=== PATIENT | male | born 1970 | race Caucasian/White ===

== ENCOUNTER 2018-08-04 23:36 | Inpatient (IN) ==
--- NOTE | 2018-08-05 02:42 | HISTORY AND PHYSICAL ---
PRIMARY CARE PHYSICIAN: Dr. Banuelos. CHIEF COMPLAINT: Abdominal pain x1 month. HISTORY OF PRESENTING ILLNESS: A 48-year-old male with a history of alcoholic liver disease, who had initially presented to [facility] with complaint of worsening abdominal pain that has been going on for the past month. Apparently, patient does have a history of alcoholic liver disease. The patient has admitted to having yellowish discoloration of his skin over the past several days. He was evaluated in the emergency department and, as per ER physician, it was suspected possibly he had peritonitis and requested patient be transferred to [facility] for further evaluation by Gastroenterology. At the time of my examination, patient had denied any headache, fever, chills, chest pain, shortness of breath, but complained of abdominal pain. PAST MEDICAL HISTORY: Includes alcoholic liver disease. PAST SURGICAL HISTORY: None. ALLERGIES: Penicillin, sulfa. CURRENT MEDICATIONS: None. SOCIAL HISTORY: [id number] history of smoking. Admits to drinking vodka and beer daily. Denies any illicit drug use. FAMILY HISTORY: No history of coronary disease. REVIEW OF SYSTEMS: Fourteen-point review of systems is as in HPI. Other systems negative. PHYSICAL EXAMINATION: GENERAL: Cooperative, friendly male. He is resting comfortably now. VITAL SIGNS: Temperature 97.7 degrees, pulse 87, respiration 19, blood pressure 120/78. HEENT: Atraumatic, normocephalic. Extraocular movements intact. PERRLA.. scleral icterus NECK: No masses. CHEST: Bibasilar rales. CARDIOVASCULAR: Regular rate and rhythm. ABDOMEN: Distended and ascitic. Ballottement noted. EXTREMITIES: No edema. NEUROLOGIC: He is awake, alert, oriented x3. GENITOURINARY: No bladder distention. SKIN: Warm, Jaundiced LABORATORIES AND STUDIES: WBCs 14.7, hemoglobin 11.8, hematocrit 33.9, platelets 283,000. Sodium 128, potassium 3.5, chloride 89, CO2 of 25, BUN is 16, creatinine 0.9. Glucose 132, alkaline phosphatase 289, bilirubin 5.8, AST 171, ALT 28, ammonia level 26. PT/INR 15.9 and 1.57. ASSESSMENT: A 48-year-old male with a history of alcoholic liver disease, who initially had presented to [facility] with complaint of worsening abdominal pain. The patient was evaluated there and, as per ER physician, it was suspected he had peritonitis, subsequently he was transferred to [facility] for further evaluation management. 1. Ascites. 2. Alcohol liver disease. 3. Suspected spontaneous bacterial peritonitis. PLAN: 1. We will admit patient to medical floor. 2. Will keep patient NPO. 3. Will schedule an ultrasound-guided paracentesis in the morning. 4. Consult Gastroenterology. 5. After paracentesis done we will start patient on empiric antibiotics. 6. We will put patient on DVT prophylaxis with SCDs. 7. We will continue to follow and reassess, make further recommendations based on patient's clinical course. cc: Israel Wu MD MTDD
[2018-08-05] MEDS: MORPHINE IV PRN ×6 (03:13→21:04)
[2018-08-05] MEDS: ZOFRAN IV PRN ×2 (03:13→10:22)
[2018-08-05 08:12] LABS: BASO# 0.02 X1000 (0.0-0.2); BASO% 0.2 % (0.0-0.8); EOS% 1.1 % (0.0-10.0); HEMATOCRIT 32.8 % (42.0-52.0); HEMOGLOBIN 11.2 g/dL (14.0-18.0); IMM GRAN# 0.03 X1000 (0.0-0.04); IMM GRAN% 0.3 % (0.0-0.5); LYMPH# 1.22 X1000 (1.2-3.4); LYMPH% 13.3 % (20.5-51.1); MCH 35.6 PG (27-31); MCHC 34.1 g/dL (33-37); MCV 104.1 FL (81-99); MONO# 1.12 X1000 (0.11-0.59); MONO% 12.2 % (1.7-9.3); MPV 9.8 FL (7.4-10.4); NEUT% 72.9 % (42.2-75.2); PLT 213 X1000 (130-400); RBC 3.15 XMIL (4.7-6.1); RDW 14.9 % (11.5-14.5); WBC 9.19 X1000 (4.8-10.8)
[2018-08-05 08:20] LABS: INR 1.56; PROTIME 19.8 Seconds (11.0-16.0)
[2018-08-05 08:21] LABS: PTT 39.1 Seconds (22.3-41.8)
[2018-08-05 08:39] LABS: AGAP 12; ALB/GLOB RATIO 0.8; ALBUMIN 2.6 g/dL (3.5-5.0); ALKALINE PHOSPHATASE 262 U/L (32-122); BUN 19 mg/dL (8-22); CALCIUM 7.8 mg/dL (8.8-10.2); CHLORIDE 92 mmol/L (98-107); COSMO 268; CREATININE 0.9 mg/dL (0.7-1.2); ESTIMATED GFR > 60; GLUCOSE 92 mg/dL (70-104); GOT 146 U/L (10-34); GPT 25 U/L (10-44); POTASSIUM 3.7 mmol/L (3.5-5.1); SODIUM 133 mmol/L (136-145); TCO2 29 mmol/L (25-35); TOTAL BILIRUBIN 5.07 mg/dL (0.20-1.00); TOTAL PROTEIN 5.8 g/dL (6.3-8.3)
[2018-08-05] MEDS ORDERED: SODIUM CHLORIDE 0.9% INJ PRN (10:23)
--- NOTE | 2018-08-05 11:24 | PROGRESS NOTE ---
DATE: 08/05/2018 SUBJECTIVE: Mr. Wei Davis is a 48-year-old gentleman with a history of severe cirrhosis secondary to chronic alcohol abuse. He was transferred from [facility] to [facility] for evaluation of worsening abdominal pain. Apparently over the past several days, he had been having increasing abdominal pain, abdominal distention, nausea/vomiting, low-grade fever, and chills. He continues to drink heavily on a daily basis. OBJECTIVE: Vital Signs: Temperature 98.3 degrees, pulse 97, respirations 20, BP 111/75. Cardiovascular: Regular rate and rhythm. Lungs: Clear. Abdomen: Distended. Hypoactive bowel sounds. No rebound or guarding. ASSESSMENT AND PLAN: 1. Abdominal pain. I suspect that he has spontaneous bacterial peritonitis, given the large amount of ascites with his history of alcohol-induced cirrhosis. We will continue to hold him n.p.o., and we will began Cipro 400 mg IV q.12 h. We will consult Dr. Loja for an ultrasound-guided paracentesis. 2. Alcohol abuse. I will begin thiamin 100 mg IV daily and Librium 10 mg q.6 h. for DT prophylaxis. cc: MD Armond Crane MD
[2018-08-05] MEDS: LIBRIUM PO SCH ×3 (11:51→21:04)
[2018-08-05] MEDS: THIAMINE 100 MG in NS 50 ML IV SCH (11:51)
[2018-08-05] MEDS: CIPRO 400 MG/D5W 400 MG/200 ML IVPB IV SCH ×2 (12:31→22:32)
--- NOTE | 2018-08-05 13:31 | GASTROENTEROLOGY CONSULTATION ---
DATE: 08/05/2018 REASON FOR CONSULTATION: Ascites, alcoholic liver disease. HISTORY OF PRESENT ILLNESS: This is a 48-year-old white male who reports history of alcohol abuse. He usually drinks 1 pint of vodka and multiple beers daily. He reports onset of symptoms over the last several months. He has followed with Dr. Jef Banuelos with abdominal pain, abdominal swelling. The patient has had worsening swelling over the last several weeks. He states he has not had any alcohol over the last 2 to 3 weeks due to his symptoms. He has reported yellowing of his skin and eyes over the last several days. He came in to the emergency room due to increased abdominal distention, some fever, chills, shortness of breath. PAST MEDICAL HISTORY: Lower back pain (chronic), recent diagnosis of liver disease, alcohol abuse, tobacco abuse. PAST SURGICAL HISTORY: None reported. ALLERGIES: Penicillin and sulfonamides, unknown reaction. HOME MEDICATIONS: None listed. SOCIAL HISTORY: Positive for alcohol abuse, usually drinking 1 pint of vodka and multiple beers daily. Positive for tobacco use, 1 to 1-1/2 packs daily. 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 FAMILY HISTORY: No reported liver disease in the family. REVIEW OF SYSTEMS: Per history of present illness. PHYSICAL EXAMINATION: Vital Signs: Temperature 97.5 degrees, pulse 97, respirations 20, blood pressure 111/73. General: The patient is awake and alert, in no acute distress. He does complain of abdominal pain. HEENT: Scleral icterus noted. Skin jaundiced. Respiratory: Lung sounds with bilateral rales. Cardiovascular: Regular rate and rhythm. Abdomen: Distended, firm. Extremities: Bilateral lower extremity edema noted. Neurological: Cranial nerves II through XII grossly intact. The patient is awake, alert, and oriented to person, place, and time. IMAGING: No x-rays done. ASSESSMENT: 1. Ascites. 2. Abdominal pain. 3. Alcoholic liver disease. 4. Possible spontaneous bacterial peritonitis. PLAN: Continue symptomatic treatment and supportive care. We will plan for a paracentesis when able. Labs have been ordered for paracentesis. Per Radiology, they will not be able to do the paracentesis today, and will plan to do it on Monday. Will allow full liquid diet today, and n.p.o. after midnight in preparation for paracentesis. Further plans will be made according to findings. I have discussed this case with Dr. Loja. Thank you for this consultation. Dictated by BEVERLY Bro for Trever Loja MD cc: BEVERLY Ugarte MD
[2018-08-05] MEDS: PHENERGAN IV PRN ×2 (14:21→18:23)
[2018-08-06] MEDS: LIBRIUM PO SCH ×3 (03:30→21:01)
[2018-08-06] MEDS: MORPHINE IV PRN (04:10)
[2018-08-06 07:14] LABS: INR 1.56; PROTIME 19.8 Seconds (11.0-16.0)
[2018-08-06 07:15] LABS: BASO# 0.03 X1000 (0.0-0.2); BASO% 0.2 % (0.0-0.8); EOS# 0.11 X1000 (0.0-0.7); EOS% 0.9 % (0.0-10.0); HEMATOCRIT 34.6 % (42.0-52.0); HEMOGLOBIN 11.9 g/dL (14.0-18.0); IMM GRAN# 0.04 X1000 (0.0-0.04); IMM GRAN% 0.3 % (0.0-0.5); LYMPH# 1.56 X1000 (1.2-3.4); LYMPH% 12.8 % (20.5-51.1); MCH 35.5 PG (27-31); MCHC 34.4 g/dL (33-37); MCV 103.3 FL (81-99); MONO# 1.48 X1000 (0.11-0.59); MONO% 12.1 % (1.7-9.3); NEUT# 8.98 X1000 (1.4-6.5); NEUT% 73.7 % (42.2-75.2); PLT 289 X1000 (130-400); RBC 3.35 XMIL (4.7-6.1); RDW 14.6 % (11.5-14.5)
[2018-08-06 07:26] LABS: ESTIMATED GFR > 60
[2018-08-06 07:28] LABS: AGAP 13; ALB/GLOB RATIO 0.7; ALBUMIN 2.7 g/dL (3.5-5.0); ALKALINE PHOSPHATASE 266 U/L (32-122); BUN 21 mg/dL (8-22); CALCIUM 7.9 mg/dL (8.8-10.2); CHLORIDE 85 mmol/L (98-107); COSMO 254; CREATININE 0.9 mg/dL (0.7-1.2); GLUCOSE 98 mg/dL (70-104); GOT 204 U/L (10-34); GPT 28 U/L (10-44); SODIUM 125 mmol/L (136-145); TCO2 27 mmol/L (25-35); TOTAL BILIRUBIN 5.34 mg/dL (0.20-1.00); TOTAL PROTEIN 6.6 g/dL (6.3-8.3)
--- NOTE | 2018-08-06 07:33 | Diag Imaging Result Doc PS360 ---
CHEST-PORTABLE - 08/06/2018 INDICATION: dyspnea COMPARISON: None FINDINGS: Lung volumes are severely low. No infiltrates or effusions. Heart size is normal. IMPRESSION: Severely low lung volumes. Electronically signed by Alek Hoyt 08/06/2018 7:31 AM
--- NOTE | 2018-08-06 09:12 | Diag Imaging Result Doc PS360 ---
US ABD PARACENTESIS W S/I - 08/06/2018 INDICATION: ascites COMPARISON: None FINDINGS: The risks and benefits of the procedure were discussed with the patient. All questions were answered. Written and verbal consent was obtained. Ultrasound scanning demonstrated ascites. Overlying skin was prepped and draped in sterile fashion. Anesthesia was achieved with injection of 10 cc 1% lidocaine. The paracentesis catheter was advanced until the return of ascites fluid. 5.5 L was aspirated. The catheter was withdrawn intact. The patient reported no symptoms from the procedure. IMPRESSION: Successful and uncomplicated ultrasound-guided paracentesis. Electronically signed by Alek Hoyt 08/06/2018 9:09 AM
--- NOTE | 2018-08-06 09:16 | Diag Imaging Result Doc PS360 ---
US ABDOMEN-COMPLETE - 08/06/2018 INDICATION: Abdominal distention, likely cirrhosis COMPARISON: None FINDINGS: The liver is diffusely increased in echotexture compatible with fatty change. The spleen is enlarged. The spleen measures 13.5 x 4.6 cm. There is a tiny polyp in the gallbladder measuring 6 mm. There is nonspecific gallbladder wall thickening from the edema. There is mild to moderate ascites. Common bile duct measures 5 mm. The main portal vein demonstrates pulsatile or absent flow. The hepatic artery is the dominant flow signal here. Aorta and IVC are normal. Both kidneys are normal. The pancreas is obscured. IMPRESSION: 1. Severe fatty change of the liver compatible with hepatocellular disease. 2. Absent flow of the main portal vein. 3. Splenomegaly. 4. Ascites. 5. Tiny polyp in the gallbladder. Nonspecific gallbladder wall thickening of no significance. Electronically signed by Alek Hoyt 08/06/2018 9:14 AM
[2018-08-06] MEDS: FOLIC ACID PO SCH (09:49)
[2018-08-06] MEDS ORDERED: ALBUMIN 25% IV ONE (10:27)
[2018-08-06 11:05] LABS: BODY FLUID SOURCE ASCETIC FLUID; WBC BF 34 /cumm
--- NOTE | 2018-08-06 11:11 | PROGRESS NOTE ---
DATE: 08/06/2018 SUBJECTIVE: This patient just had an abdominal paracentesis, 5.5 L of fluid has been removed and I already asked for albumin IV. The fluid has been sent to the laboratory for analysis, pending at this time. I talked to Dr. Loja by phone. We will place this patient on spironolactone and furosemide starting today. I already talked to the family about the treatment, and I strongly recommended to this patient to stop drinking completely. We did an ultrasound of the abdomen that showed severe fatty change of the liver compatible with hepatocellular disease, absent flow of the main portal vein, splenomegaly, cecitis, tiny polyp in the gallbladder, nonspecific gallbladder wall thickening of no significance. The patient will be re-evaluated today by Gastroenterology Department. Probably, I will discharge this patient tomorrow. OBJECTIVE: Vital Signs: Temperature 98.8 degrees, pulse 107, respiratory rate 16, blood pressure 110/68, oxygen saturation 100% on room air. HEENT: Head. Normocephalic. No trauma. PERRLA. Icteric sclerae. Skin jaundiced. Neck: Supple. No JVD. Central trachea. Chest: Clear to auscultation. Some crepitus at the bases. Abdomen: Soft. Distended. He does have some abdominal wall edema and fluid. Firm liver and splenomegaly. Positive bowel sounds. Extremities: 3+ lower extremity edema all the way up to the thigh. Neurological: The patient is alert and oriented x3. No focal deficits. LABORATORY: WBC 12.2, hemoglobin 11.9, hematocrit 34.6, platelets 289,000. Sodium 125, potassium 4, chloride 85, bicarbonate 27, BUN 21, creatinine 0.9, glucose 98, calcium 7.9. AST 204, ALT 28, alkaline phosphatase 266, bilirubin 5.3. ASSESSMENT AND PLAN: 1. Alcohol liver disease, ascites, status post paracentesis. suspected spontaneous bacterial peritonitis. As per the patient, he has been having some chills. We started this patient already on ciprofloxacin IV. Since we removed 5.5 L of fluid, we will add albumin x1. The case has been discussed with Gastroenterology Department. We will start this patient on furosemide and spironolactone as well. Since the blood pressure has been borderline low, I will stop the morphine. I will put him on Tramadol as needed. The patient will be evaluated by Gastroenterology Department today and hopefully tomorrow, we will be able to discharge this patient home. 2. Alcohol abuse. As per the patient and the family, he stopped drinking a few days ago, I believe 10 days ago. He does not have any signs of withdrawal at this moment. He has been getting Librium during this hospitalization, which I will decrease the dose. We started replacing his thiamine and folic acid as well. 3. Hyponatremia, will monitor for now. He is not having any kind of symptoms or confusion. cc: Russ Bautista MD
[2018-08-06 11:23] LABS: AMYLASE BODY FLUID 33 U/L; GLUCOSE BODY FLUID 116 mg/dL; TOTAL PROT BODY FLUID 1.4 g/dL
[2018-08-06] MEDS: ALDACTONE PO SCH (11:36)
[2018-08-06] MEDS: ULTRAM PO PRN ×2 (11:36→19:20)
[2018-08-06] MEDS: LASIX PO SCH (11:36)
[2018-08-06 11:39] LABS: MONOS 84 %; POLYS 16 %
[2018-08-06] MEDS ORDERED: NS 250 ML ONE (11:41)
--- NOTE | 2018-08-06 12:56 | GASTROENTEROLOGY PROGRESS NOTE ---
DATE: 08/06/2018 SUBJECTIVE: The patient is resting with eyes closed in no acute distress. He had an ultrasound- guided paracentesis this morning with 5.5 L of fluid removed. Ultrasound prior to the procedure showed severe fatty change of the liver compatible with hepatic cellular disease, absent flow of the main portal vein, splenomegaly, ascites and a tiny gallbladder polyp with nonspecific wall thickening. Ascitic fluid analysis is pending. I have spoken with the patient and his mother. OBJECTIVE: Vital Signs: Temperature 94.4 degrees, pulse 106, respirations 13, blood pressure 105/57. General: The patient was resting but aroused easily. Abdomen: Softer, less distended. LABORATORY DATA: Hematology: WBC 12.20, hemoglobin 11.9, hematocrit 34.6. Chemistry: Sodium 125, potassium 4.0, chloride 85, CO2 27, BUN 21, creatinine 0.9, glucose 98, total bilirubin 5.34, AST 204, ALT 28, alkaline phosphatase 266. ASSESSMENT AND PLAN: 1. Alcoholic liver disease, ascites. The patient has had paracentesis with 5.5 L of fluid removed. Awaiting on fluid analysis. The patient has been started on Lasix and spironolactone along with lactulose. 2. Alcohol abuse. I have spoken with the patient along with his family about the necessity of him avoiding all alcohol. They voiced understanding. 3. Ultrasound showing absent flow to the main portal vein. I have discussed this case with Dr. Loja. He recommended an MRI of the abdomen for further evaluation with attention to the portal vein. Will continue to follow and further plans to be made according to his progress and findings. I have discussed this case with Dr. Loja. Dictated by BEVRELY Bro for Trever Loja MD cc: BEVERLY Ugarte MD [facility]
[2018-08-06] MEDS: CIPRO 400 MG/D5W 400 MG/200 ML IVPB IV SCH ×2 (14:01→22:03)
--- NOTE | 2018-08-06 14:26 | Diag Imaging Result Doc PS360 ---
MRA ABDOMEN W/CONTRAST - 08/06/2018 INDICATION: attention portal vein (see US report) TECHNIQUE: COMPARISON: None FINDINGS: The angiogram is normal. The arteries and veins of the abdomen are all patent. The splenic vein, superior mesenteric vein, main portal vein, and major hepatic veins are all patent. IMPRESSION: Normal angiogram. No venous thrombosis. Electronically signed by Alek Hoyt 08/06/2018 2:24 PM
[2018-08-06] MEDS: THIAMINE 100 MG in NS 50 ML IV SCH (15:42)
[2018-08-06] MEDS: LACTULOSE PO SCH (21:01)
[2018-08-07 03:33] VITALS: BP 107/63
[2018-08-07 07:32] LABS: AGAP 10; ALB/GLOB RATIO 0.9; ALBUMIN 2.6 g/dL (3.5-5.0); ALKALINE PHOSPHATASE 232 U/L (32-122); BUN 14 mg/dL (8-22); CALCIUM 7.9 mg/dL (8.8-10.2); CHLORIDE 90 mmol/L (98-107); COSMO 254; CREATININE 0.8 mg/dL (0.7-1.2); ESTIMATED GFR > 60; GLUCOSE 95 mg/dL (70-104); GOT 152 U/L (10-34); GPT 23 U/L (10-44); POTASSIUM 3.6 mmol/L (3.5-5.1); SODIUM 126 mmol/L (136-145); TCO2 26 mmol/L (25-35); TOTAL BILIRUBIN 6.37 mg/dL (0.20-1.00); TOTAL PROTEIN 5.4 g/dL (6.3-8.3)
[2018-08-07 07:33] LABS: BASO# 0.02 X1000 (0.0-0.2); BASO% 0.3 % (0.0-0.8); EOS# 0.05 X1000 (0.0-0.7); EOS% 0.8 % (0.0-10.0); HEMATOCRIT 30.2 % (42.0-52.0); HEMOGLOBIN 10.5 g/dL (14.0-18.0); IMM GRAN# 0.02 X1000 (0.0-0.04); IMM GRAN% 0.3 % (0.0-0.5); LYMPH# 0.93 X1000 (1.2-3.4); MCH 35.4 PG (27-31); MCHC 34.8 g/dL (33-37); MCV 101.7 FL (81-99); MONO# 0.75 X1000 (0.11-0.59); MONO% 12.1 % (1.7-9.3); MPV 9.7 FL (7.4-10.4); NEUT# 4.41 X1000 (1.4-6.5); NEUT% 71.5 % (42.2-75.2); PLT 179 X1000 (130-400); RBC 2.97 XMIL (4.7-6.1); RDW 14.2 % (11.5-14.5); WBC 6.18 X1000 (4.8-10.8)
[2018-08-07] MEDS: FOLIC ACID PO SCH (09:55)
[2018-08-07] MEDS: LIBRIUM PO SCH (09:55)
[2018-08-07] MEDS: LASIX PO SCH (09:56)
[2018-08-07] MEDS: ALDACTONE PO SCH (09:56)
[2018-08-07] MEDS: LACTULOSE PO SCH (09:56)
[2018-08-07] MEDS: ULTRAM PO PRN (10:13)
[2018-08-07 10:47] LABS: ALBUMIN BODY FLUID 0.6 g/dL
[2018-08-07] MEDS: CIPRO 400 MG/D5W 400 MG/200 ML IVPB IV SCH (11:08)
[2018-08-07] MEDS ORDERED: PNEUMOVAX 23 IM ONE (12:21)
[2018-08-07] MEDS ORDERED: FLU VACCINE IM ONE (12:21)
[2018-08-07] MEDS: THIAMINE 100 MG in NS 50 ML IV SCH (12:37)
--- NOTE | 2018-08-07 12:40 | DISCHARGE SUMMARY ---
ADMISSION DATE: 08/04/2018 DISCHARGE DATE: 08/07/2018 ADMITTING DIAGNOSES: 1. Alcoholic liver disease. 2. Ascites. 3. Possible spontaneous bacterial peritonitis. 4. Nicotine dependence. 5. Alcohol dependence. DISCHARGE DIAGNOSES: 1. Alcoholic liver disease. 2. Ascites. 3. Nicotine dependence. 4. Alcohol dependence. CONSULTATIONS: Dr. Loja with Gastroenterology. DIAGNOSTIC PROCEDURES AND FINDINGS: Abdominal ultrasound on 08/06/2018 shows severe fatty changes of the liver compatible with hepatocellular disease, absent flow of the main portal veins, splenomegaly, ascites, tiny polyp in the gallbladder, nonspecific gallbladder wall thickening of no significance. Paracentesis and ultrasound 08/06/2018 shows successful and uncomplicated ultrasound-guided paracentesis with 5.5 L of ascitic fluid aspirated. Abdominal MRI with MRA on 08/06/2018 shows normal angiogram. No venous thrombosis. HOSPITAL COURSE: Mr. Davis is a 48-year-old with a history of heavy alcohol dependence, who presented from [facility] with ascites and abdominal pain which was suspicious for spontaneous bacterial peritonitis, and it was felt he would need transfer to [facility] for GI evaluation. He was transferred here, and he had an ultrasound done of the abdomen which showed fatty liver disease and no portal vein flow. GI was consulted, and supportive care and symptomatic treatment was recommended. He was prescribed diuretics, lactulose, electrolytes and was put on benzodiazepines for alcohol withdrawal. He had a paracentesis done which removed 5.5 L of fluid, and this did not grow anything of significance. He was counseled daily on alcohol cessation and nicotine cessation. It was noted on ultrasound the possibility of no portal vein flow, so an MRI was recommended which did not show any obstruction in the venous system. Overall since admission, the patient is feeling much better, and his withdrawals have been minimal, and he is now stable for discharge home. DISCHARGE MEDICATIONS: Aldactone 100 mg p.o. daily, folic acid 1 mg p.o. daily, lactulose 30 mL p.o. b.i.d., Lasix 40 mg p.o. daily, tramadol 50 mg p.o. q.6. DISCHARGE PHYSICAL EXAMINATION: GENERAL: This is a chronically ill-appearing 48-year-old male lying in hospital bed in no acute distress. NEUROLOGICAL: He is awake and alert. He follows commands without focal deficits. HEENT: Head is atraumatic and normocephalic. Pupils are equal, round and reactive to light. Oral mucosa is moist. His sclerae are slightly icteric. NECK: His trachea is midline. There is no JVD. CHEST: Clear to auscultation bilaterally. CARDIOVASCULAR: Regular rate and rhythm. S1 and S2 noted. No murmurs. GASTROINTESTINAL: Slightly distended but nontender. Bowel sounds are hypoactive. EXTREMITIES: There is 2+ edema. Pulses diminished bilaterally but palpable. DISCHARGE LAB DATA: WBC is 6.18, hemoglobin 10.5, hematocrit 30.2, MCV is 101.7, platelet count 179. Sodium is 126, potassium 3.6, chloride 90, CO2 is 26, anion gap 10, BUN is 14, creatinine 0.8, glucose 95, calcium 7.9, total bilirubin 6.37, AST is 152, ALT is 23, alkaline phosphatase 232. Protein 5.4. Albumin 2.6. Vitamin B12 greater than 2000, folate 6.5. Ascitic fluid analysis showed WBC of 34, polynuclear WBC of 16, mononuclear WBC of 84, glucose 116, protein 1.4, albumin 0.6, amylase 33. DISCHARGE DIET: Low sodium, heart healthy. DISCHARGE ACTIVITY: Resume activity as tolerated. DISPOSITION AND OTHER DISCHARGE INSTRUCTIONS: The patient is discharged home to self care. He is to follow up with Dr. Jef Banuelos in the next 1 to 2 weeks or sooner if needed. He is also to follow up with Dr. Loja as directed. He is to continue home medications as directed. We have counseled him extensively on nicotine and alcohol cessation. We have directed him toward Alcoholics Anonymous and advised for nicotine patch if needed. All questions have been answered. We have also advised him to return to the ER or call 911 for worsening complaints of concerns. Discharge time is greater than 35 minutes. Dictated by BEVERLY James for Russ Bautista MD cc: BEVERLY James MD Khurshid Yousuf, MD [facility], MD [facility] HOSPITALEsther
--- NOTE | 2018-08-07 14:09 | GASTROENTEROLOGY PROGRESS NOTE ---
DATE: 08/07/2018 SUBJECTIVE: Patient is awake and alert. His significant other and his father are at the bedside. Dr. Hastings was also at the bedside at the time of my visit. We have discussed the findings of the ascitic fluid analysis with the patient. It is not consistent with bacterial peritonitis. SAAG greater than 1.1 consistent with cirrhosis of the liver with portal hypertension. Patient reports increased abdominal distention since his paracentesis yesterday. OBJECTIVE: Vital signs: Temperature 97.7 degrees, pulse 91, blood pressure 107/63. General: Generally, the patient is awake, alert, in no acute distress. Abdomen: Distended, although soft at present time. LABORATORY: Hematology: WBC 6.18, hemoglobin 10.5, hematocrit 30.2, MCV 101.7 platelet 179. Chemistry: Sodium 126, potassium 3.6, chloride 90. BUN 14, creatinine 0.8, glucose 95, calcium 7.9, total bilirubin 6.37, AST 152, ALT 23, alkaline phosphatase 232, albumin 2.6. Ascitic fluid analysis is not consistent with bacterial peritonitis, consistent with cirrhosis of the liver with portal hypertension. ASSESSMENT AND PLAN: 1. Alcoholic liver disease. 2. Alcohol abuse. Strongly encouraged patient to stop alcohol use; also advised him to stop smoking. 3. Ascites. The patient still has some ascites, but abdomen is softer after a paracentesis yesterday, 5.5 liters of fluid was removed. 4. Ultrasound that showed absent flow to the main portal vein. An magnetic resonance imaging of the abdomen was done that showed normal angiogram with no venous thrombosis. INSTRUCTIONS: Instructed patient to avoid all alcohol use. Recommend him to follow a 2 g sodium diet. Patient will be discharged home on lactulose, spironolactone, Lasix, folate acid. Again, recommend them to follow a 2 g sodium diet. Recommend him to come by the office and it support specialist instructions for 2 g sodium diet and also to make an office visit for 2 weeks after discharge. Further plans will be made according to progress. Patient and his family voice understanding of plan of care. I have discussed this case with Dr. Loja. Dictated by BEVERLY Bro for Trever Loja MD cc: BEVERLY Ugarte MD
== END 2018-08-07 14:19 | disposition home or self-care (01) | DRG 432 ==
LOC: SUATTDRO 23:36 → MERGE 23:36 → SUPCPDRO 23:36 → DIRADM 23:36 → 3N 08-05 01:17
PROVIDERS: ATTEND Internal Medicine
CPT/HCPCS: 49083; 71010; 71045; 74185; 76700; 80053; 82042; 82150; 82607; 82746; 82945; 84157; 85025; 85610; 85730; 87070; 87205; 89051; A9270; A9579; C8900; J0744; J2270; J2405; J2550; J3411; J7050; P9047

== ENCOUNTER 2018-09-10 16:35 | Inpatient (IN) ==
[2018-09-10 17:28] LABS: BASO# 0.01 X1000 (0.0-0.2); BASO% 0.1 % (0.0-0.8); EOS# 0.12 X1000 (0.0-0.7); EOS% 1.1 % (0.0-10.0); HEMATOCRIT 28.9 % (42.0-52.0); HEMOGLOBIN 10.4 g/dL (14.0-18.0); IMM GRAN# 0.03 X1000 (0.0-0.04); IMM GRAN% 0.3 % (0.0-0.5); LYMPH% 20.3 % (20.5-51.1); MCH 34.7 PG (27-31); MCV 96.3 FL (81-99); MONO# 1.15 X1000 (0.11-0.59); MONO% 10.6 % (1.7-9.3); NEUT# 7.34 X1000 (1.4-6.5); NEUT% 67.6 % (42.2-75.2); PLT 184 X1000 (130-400); RDW 14.1 % (11.5-14.5); WBC 10.85 X1000 (4.8-10.8)
--- NOTE | 2018-09-10 17:48 | Diag Imaging Result Doc PS360 ---
EXAM: CHEST-1 VIEW 09/10/2018 HISTORY: cough TECHNIQUE: AP portable at 1719 COMMENT: There is increased opacity in the left lower lobe compared to 08/06/2018. The heart size and pulmonary vascularity are within normal limits. IMPRESSION: Worsened atelectasis versus pneumonia left lower lobe. Electronically signed by Valente Paredes 09/10/2018 5:46 PM
[2018-09-10 18:04] LABS: ALB/GLOB RATIO 0.5; ALBUMIN 2.5 g/dL (3.5-5.0); CALCIUM 8.5 mg/dL (8.8-10.2); CREATININE 5.5 mg/dL (0.7-1.2); POTASSIUM 5.4 mmol/L (3.5-5.1); TOTAL BILIRUBIN 4.44 mg/dL (0.20-1.00); TOTAL PROTEIN 7.4 g/dL (6.3-8.3)
[2018-09-10] MEDS ORDERED: LEVAQUIN 250 MG/D5W 250 MG/50 ML IVPB IV ONE (18:37)
[2018-09-10] MEDS ORDERED: LACTULOSE PO ONE (18:41)
--- NOTE | 2018-09-10 18:45 | PROVIDER DOCUMENTATION ---
This chart was entered by Smiley Caicedo Scribe, acting as scribe for Johnny Gray MD. HPI-General Adult - General Chief Complaint: Abnormal Lab[s] Stated Complaint: KIDNEY,LIVER PAIN Time Seen by Provider: 09/10/18 16:39 Source: family Allergies/Adverse Reactions: Patient Allergies Allergy/AdvReac Type Severity Reaction Status Date / Time Penicillins AdvReac NAUSEA/VOMI Verified 09/10/18 17:15 TING Sulfa (Sulfonamide AdvReac NAUSEA/VOMI Verified 09/10/18 17:15 Antibiotics) TING Home Medications: Home Medication List Medication Instructions Recorded Confirmed Last Taken Type Albuterol Sulfate Inhaler 2 puff INH [id number] #1 inhaler 04/26/16 Unknown Rx [Ventolin Hfa] Hydrocodone/APAP 5 mg/325 mg 1 each PO TID #8 tablet 04/26/16 08/08/18 10:00 Rx [[place]-5] Folic Acid 1 mg PO DAILY #90 tab 08/07/18 08/21/18 10:00 Rx Lactulose 30 ml PO BID #1 udc 08/07/18 08/21/18 10:00 Rx Spironolactone [Aldactone] 100 mg PO DAILY #180 tab 08/07/18 08/21/18 10:00 Rx - History of Present Illness -Gen Adult Nature of Presenting Problems: Patient is a 48 year old male who presents with abnormal labs. Patient's girlfriend states patient was seen at Dr. Vazquez's office and was informed the patient had renal failure. History of cirrhosis. Denies nausea and vomiting. Location of Pain/Injury: reports: abdomen Pain Radiation: reports: no radiation Quality of Pain: reports: tightness Severity: reports: mild Onset/Duration: reports: gradual Timing: reports: still present Context/Activities at Onset: reports: light activity Modifying Factors: improves with: nothing Associated Symptoms: reports: denies symptoms Similar Symptoms Previously?: Yes Recently seen or treated by another doctor?: Yes Review of Systems - Adult - REVIEW OF SYSTEMS - ADULT Constitutional: reports: no symptoms reported. denies: chills, fever, fatique Eyes: reports: no symptoms reported Ears, Nose, Mouth & Throat: reports: no symptoms reported Cardiovascular: reports: no symptoms reported Respiratory: reports: cough. denies: shortness of breath, wheezing Gastrointestinal: reports: see HPI, abdominal pain. denies: diarrhea, nausea, vomiting Genitourinary: reports: no symptoms reported Musculoskeletal: reports: no symptoms reported. denies: back pain, muscle aches , neck pain Integumentary: reports: no symptoms reported Neurological: reports: no symptoms reported Psychiatric: reports: no symptoms reported Endocrine: reports: no symptoms reported Hematologic/Lymphatic: reports: no symptoms reported Allergic/Immunologic: reports: no symptoms reported All Other Systems: Reviewed and Negative Past History - Adult - PAST MEDICAL HISTORY-ADULT Review of Records: reports: Nursing Assessment Review, Medications Reviewed, Social history reviewed & non-contributory. Major Childhood Illnesses: reports: denies history Cardiovascular: reports: denies history Respiratory: reports: denies history Gastrointestinal: reports: liver disease Obstetrical/Gynecological: reports: denies history Genitourinary: reports: denies history Musculoskeletal: reports: denies history Neurological: reports: denies history Psychiatric: reports: denies history Endocrine/Immune: reports: denies history Other Conditions: reports: denies history - PRIOR SURGERIES/PROCEDURES Surgical/Procedure History: reports: reviewed, not pertinent - IMMUNIZATION STATUS Childhood Immunizations: See Nurse Assessment Flu Vaccine: See Nurse Assessment - FAMILY HISTORY Family History: reviewed, not pertinent - SOCIAL HISTORY Smoking: cigarettes, greater than 1 pack/day Provider spent 3-5 mins advising pt. on dangers of tobacco.: Discussed manners to quit use, and f/u contacts for add'l counseling. Alcohol Use Frequency: sober (former use) Living Situation: family Physical Exam-General - PHYSICAL EXAM-ADULT Initial Vital Signs Reviewed: Yes - CONSTITUTIONAL General Appearance: alert, no apparent distress, thin. negative: lethargic, slow to respond - EYES Eyes: scleral icterus. negative: pale conjunctivae, sunken eyes - RESPIRATORY Respiratory: chest non-tender, no respiratory distress, rhonchi (bilateral). negative: crackles - CARDIOVASCULAR Cardiovascular: normal peripheral pulses, regular rate, rhythm. negative: tachycardia, systolic murmur - GASTROINTESTINAL (ABDOMEN) Abdominal Exam: normal bowel sounds, distended, tenderness (diffuse), other (positive fluid wave. ascites.). negative: hernia - MUSCULOSKELETAL Extremity: non-tender, other (3 + pitting edema to bilateral lower extremities.) . negative: deformity, erythema - SKIN Integumentary: jaundice. negative: cyanosis, ecchymosis, erythema - NEUROLOGIC Neurologic: grossly normal. negative: aphasia, facial droop - PSYCHIATRIC Psych/Mental Status: normal mood/affect. negative: anxious, paranoid Progress - PLAN OF CARE/RESULTS Progress/Plan/Lab Results: Vital Signs - 8 hr 09/10/18 16:43 Temperature 97.1 F L Pulse Rate 89 Respiratory Rate 18 Blood Pressure 92/56 O2 Sat by Pulse Oximetry 99 Orders Category Date Time Status AMMONIA [CHEM] Stat Lab 09/10/18 16:40 Uncollected CBC WITH ELECTRONIC DIFF [HEME] Stat Lab 09/10/18 16:40 Uncollected COMPREHENSIVE METABOLIC PANEL [CHEM] Stat Lab 09/10/18 16:40 Uncollected LACTATE, PLASMA [CHEM] Stat Lab 09/10/18 16:40 Uncollected TROPONIN T Stat Lab 09/10/18 16:40 Uncollected URINALYSIS [URINALYSIS] Stat Lab 09/10/18 16:40 Uncollected Result Diagrams: 09/10/18 17:00 09/10/18 17:00 - XRAY 1 XRAY Study: Chest Impression: See EMR Report ( EXAM: CHEST-1 VIEW 09/10/2018 HISTORY: cough TECHNIQUE: AP portable at 1719 COMMENT: There is increased opacity in the left lower lobe compared to 08/06/2018. The heart size and pulmonary vascularity are within normal limits. IMPRESSION: Worsened atelectasis versus pneumonia left lower lobe. Electronically signed by Valente Paredes 09/10/2018 5:46 PM 09/10/18 1746 Interpreting Physician: Valente Paredes MD Dictated Date /Time: 09/10/18 174 cc: Johnny Gray MD; Jef Banuelos MD) - CONSULTS/PCP/HOSPITALIST Notification #1 *Consult/PCP/Hospitalist*: Dr. Hastings Time Discussed: 17:50 Reason/Comments: Dr. Grya consulted with Dr. Hastings about patient Consult Disposition: other (call back when all the labs have resulted) #2 Consult: Mary for Hospitalist Time Discussed: 18:42 Consult Disposition: Admit Departure - Departure Date of Disposition Decision: 09/10/18 Time of Disposition Decision: 18:42 DIAGNOSIS: Pneumonia, Hyponatremia, Hyperkalemia, Acute renal failure, Increased ammonia level, Hepatic encephalopathy, Elevated troponin, Alcoholic cirrhosis of liver with ascites Disposition: ADMITTED INPATIENT 09 Certified Medical Emergency: Emergent Condition: Fair Referrals and Follow-Ups: Jef Banuelos MD [Primary Care Provider] - - Critical Care Note This patient required my direct & personal management of CC.: Yes Total Time (mins): 35 Critical Care Statement: This patient required my direct personal management to treat or rule out processes, the absence of which, could potentiallly result in sudden, clinically significant life or limb threatening deterioration. Attestation - Physician/ TARIQ Attestation Patient care was provided by Advanced Practice Provider:: No The physician spent face to face time with patient:: Yes Advanced Practice Provider documentation review:: Supervising physician onsite and consulted in the evaluation and care of this patient. The physician did have a face to face encounter with the patient. This chart was documented by the indicated scribe, (Smiley Caicedo Scribe) and accurately reflects the services I performed and decisions made by me, Johnny Gray MD, as attested by the provider's signature.
[2018-09-10 20:43] LABS: INR 1.58
[2018-09-10 21:41] LABS: URINE SOURCE CLEAN CATCH
[2018-09-10 21:45] LABS: BILIRUBIN URINE NEGATIVE (NEGATIVE); BLOOD URINE NEGATIVE (NEGATIVE); COLOR YELLOW; GLUCOSE URINE NEGATIVE (NEGATIVE); KETONE URINE NEGATIVE (NEGATIVE); LEUKOCYTES URINE NEGATIVE (NEGATIVE); NITRITE URINE NEGATIVE (NEGATIVE); PROTEIN URINE TRACE mg/dL (NEGATIVE); TURBIDITY URINE CLEAR (CLEAR); UR EPITHELIAL CELLS <10 /HPF (<10); URINE BACTERIA NEGATIVE /HPF; URINE RBC <10 /HPF (<10); URINE WBC <10 /HPF (<10); UROBILINOGEN URINE NORMAL (NORMAL)
[2018-09-10] MEDS ORDERED: NS NEB INH SCH (23:10)
[2018-09-10] MEDS ORDERED: ZOFRAN IV PRN (23:10)
[2018-09-10 23:13] LABS: UR CREAT RANDOM 167.9 mg/dL (14-26); UR PROT RANDOM 19.1 mg/dL; UR SODIUM < 10 mmoll
[2018-09-10] MEDS: XOPENEX NEB INH SCH (23:45)
[2018-09-10] MEDS: ATROVENT NEB INH SCH (23:45)
[2018-09-11] MEDS: XOPENEX NEB INH SCH ×4 (03:12→21:58)
[2018-09-11] MEDS: ATROVENT NEB INH SCH ×4 (03:12→21:56)
[2018-09-11] MEDS: ROCEPHIN 1 GM in NS 50 ML IV SCH ×2 (03:29→22:25)
[2018-09-11] MEDS: PROTONIX IV SCH ×2 (03:30→22:25)
[2018-09-11 07:10] LABS: BASO# 0.02 X1000 (0.0-0.2); BASO% 0.2 % (0.0-0.8); EOS% 1.2 % (0.0-10.0); HEMATOCRIT 28.3 % (42.0-52.0); IMM GRAN# 0.02 X1000 (0.0-0.04); IMM GRAN% 0.2 % (0.0-0.5); LYMPH# 1.75 X1000 (1.2-3.4); LYMPH% 21.2 % (20.5-51.1); MCH 34.2 PG (27-31); MCHC 35.3 g/dL (33-37); MCV 96.9 FL (81-99); MONO# 1.08 X1000 (0.11-0.59); MONO% 13.1 % (1.7-9.3); MPV 9.4 FL (7.4-10.4); NEUT# 5.29 X1000 (1.4-6.5); NEUT% 64.1 % (42.2-75.2); PLT 147 X1000 (130-400); RBC 2.92 XMIL (4.7-6.1); RDW 14.1 % (11.5-14.5); WBC 8.26 X1000 (4.8-10.8)
--- NOTE | 2018-09-11 07:20 | HISTORY AND PHYSICAL ---
PRIMARY CARE PROVIDER: Dr. Jef Banuelos. ENGINEERING OFFICER: Dr. Vazquez. QA INTERN: May be Dr. Campbell, though this has not been confirmed. CHIEF COMPLAINT: Abdominal swelling and abnormal labs. HISTORY OF PRESENT ILLNESS: Mr. Davis is a 48-year-old, male who has a history of a recent diagnosis of alcoholic liver disease a few months ago. The patient reported that he was at Dr. Vazquez's office today and Dr. Vazquez did have him come to the ER due to some abnormal labs. It does look like there has been an increase in his creatinine from what was previously 0.9 to 5.5 at this time. GFR is 11, BUN is 79. The patient has reported that he has had decreased urine output. He does report that he has had chronic edema in his lower extremities. This has been worse over the past week or so. He also reports that he has had increased abdominal swelling over the past week as well. The patient reports bilateral side pain and a stretchy tight type of pain in his abdomen. He also reports that he has had chills. He reports a productive cough with white sputum x2 days. He has also reported diarrhea x1 week. He reports the diarrhea is yellowish in color. He denied any hematochezia or melena. He denies any recent travel or being around anyone who was sick with similar symptoms. He also denies any headache, dizziness, chest pain, shortness of breath, nausea, or vomiting. He is reporting some decreased urine output. He is denying any pain or burning with urination. The patient denies taking any home medications at this time. The patient states that the prescription that he was given previously by doctor, as well as upon his discharge when he was just recently admitted to the hospital in July 2018 for alcoholic liver disease and ascites, that he is not taking any more at this time. Upon evaluation in the ER, the patient was noted to have mild leukocytosis with a white blood cell count of 10,850. He is slightly anemic. This does appear to be just below his baseline from previous labs. INR is slightly elevated at 1.58 with a PT of 20. He does appear to have acute kidney injury with of BUN of 79, creatinine 5.5, with a GFR of 11. He does have some slight electrolyte abnormalities as well with a sodium of 124 and potassium of 5.4. Liver function tests are elevated as well. Ammonia level is elevated at 112. He does have an elevated troponin of 0.099, though the patient is denying any chest pain. He does not have a previous EKG at our facility for comparison, though his EKG in the ER did show sinus tachycardia at a rate of 110. There does not appear to be any ST elevation or depression. The patient, upon examination, does have a large distended abdomen that is firm to the touch. He did not report any overt tenderness. He does have 3 to 4+ pitting edema noted in bilateral lower extremities from his knees down. Chest x-ray in the ER did show worsening atelectasis versus pneumonia in the left lower lobe. The patient does have symmetrical chest expansion bilaterally with rhonchi noted bilaterally. His lung sounds are coarse. There may be some slight underlying crackles. He is alert and oriented to person, place, time, and situation. He will be placed inpatient admission for further treatment and evaluation of his liver disease, ascites, and pneumonia, as well as his acute kidney injury. REVIEW OF SYSTEMS: A 14 point review of systems was conducted with the patient. All were negative except for pertinent positives as mentioned above in the HPI. PAST MEDICAL HISTORY: 1. Alcoholic liver disease. 2. Ascites. 3. History of alcohol abuse. 4. Nicotine dependence. PAST SURGICAL HISTORY: The patient denies any previous surgery except for his paracentesis in July of 2018. SOCIAL HISTORY: The patient reports that he smokes 1 pack per day and has done so for 10 years. He did previously admit to drinking vodka and beer daily, though states he has not drank since his last admission. He has no known reported illicit drug use. He does live at home with his fiancee. He states that he is not working at this time. FAMILY HISTORY: There is no known history of coronary artery disease. ALLERGIES: The patient has allergies to penicillin and sulfa. HOME MEDICATIONS: The patient denies any prescription home medications at this time. DIAGNOSTIC DATA/LABORATORY RESULTS: White blood cell count is 10,850, hemoglobin 10.4, hematocrit 28.9, platelet count is 184,000. PTT 20, INR 1.58, PTT is 41. Sodium 124, potassium 5.4, chloride 93, serum bicarb is 18, BUN 79, creatinine 5.5, with a GFR of 11, glucose 132, calcium 8.5, magnesium 2.2. Total bilirubin is 4.44, AST 55, ALT 28, alkaline phosphatase is 260. Ammonia level is 112. Troponin was 0.099 with a repeat of 0.096. Plasma lactate was 2.7. Urinalysis was obtained via clean catch. It was positive for trace protein. It was negative for glucose, ketones, blood, nitrites, leukocytes, white blood cells, or bacteria. EKG showed sinus tachycardia at a rate of 110 with a QTc of 465. Chest x-ray did show worsened atelectasis versus pneumonia in the left lower lobe. This was per radiology. PHYSICAL EXAMINATION: VITAL SIGNS: Temperature 97.3 degrees, heart rate 111, respirations 20, blood pressure is 117/90, oxygen saturation is 99% on nasal cannula at 2 L. GENERAL: Mr. Davis is a 48-year-old, ill-appearing, male who is resting on the ER stretcher. He is in no acute distress. He was awake and alert, and able to answer questions appropriately. HEENT: Head is atraumatic, normocephalic. Pupils are equal, round, reactive to light, were 3 mm bilaterally and brisk. The patient does have jaundice noted to bilateral sclerae. Oral mucosa is moist. Oropharynx is clear. NECK: Supple. Trachea midline. CARDIOVASCULAR: Patient has S1-S2. No murmurs, gallops, or rubs appreciated, with a regular rate and rhythm. PULMONARY: Patient has symmetrical chest expansion bilaterally. Lung sounds in bilateral full van did have coarse rhonchi noted. There were slight underlying fine diffuse crackles. ABDOMEN: Distended. It is firm to the touch. He does appears to have a large amount of ascites noted. The patient's abdomen is nontender upon palpation. He is only reporting soreness on his bilateral sides. Bowel sounds were present in all 4 quadrants. EXTREMITIES: No cyanosis noted. The patient does have 3 to 4+ pitting edema noted in bilateral lower extremities from approximately the knees down. Pulse, motor, and sensory are intact. Radial pulses and pedal pulses were 2+ bilaterally. INTEGUMENTARY: The patient's skin is pink, warm, and dry. NEUROLOGICAL: The patient is alert and oriented to person, place, time, and situation. He does answer questions appropriately and follows commands. Occasionally, he is slightly slow to respond to questions. He is able to move all extremities. There does not appear to be any focal neurological deficits noted at this time. ASSESSMENT/PLAN: 1. Alcoholic liver disease. For the treatment and evaluation, we have placed the patient to be nothing per oral after midnight for an abdominal ultrasound and likely ultrasound-guided paracentesis in the morning. He does have what appears to be a large amount of ascites noted. We will place orders for peritoneal fluid studies as well. We will continue with lactulose 30 mL by mouth twice a day to help with the patient's elevated ammonia level. The patient has been reporting some diarrhea. We will closely monitor this. The patient has been reporting chills, abdominal distention, and soreness on his bilateral sides. He does have a slightly elevated white blood cell count, though has been afebrile in the emergency room, though he does have what appears to be a left lower lobe pneumonia. To cover this, as well as any possibility of spontaneous bacterial peritonitis, we will place the patient with antibiotic coverage of Rocephin. Blood cultures have been obtained. We have placed a consult with Dr. Loja of gastroenterology. We will await their evaluation and further recommendations for management. 2. Ascites. We will continue with treatment as mentioned above with an order for an abdominal ultrasound and ultrasound-guided paracentesis with peritoneal fluid analysis. 3. Acute kidney injury. The patient has had a marked increase in his creatinine. It was previously, upon his last admission, 0.9. It is now 5.5. He is reporting decreased urine output. This may be secondary to hepatorenal syndrome. We will avoid nephrotoxic medications and renally dose medications as necessary. We have placed a consult with Dr. Vazquez. We will await his evaluation and further recommendations for management. We have also placed urine studies as well as a renal ultrasound. 4. Left lower lobe pneumonia. We have obtained blood cultures. We have placed an order for sputum culture. We will cover him with antibiotics of Rocephin intravenously 1 g every 24 hours. We will continue with scheduled Xopenex and Atrovent treatments, aggressive pulmonary toilet with incentive spirometry, and frequent turn, cough, and deep breathing. We will continue to follow. 5. Diarrhea. The patient has denied any recent travel, being around anyone sick or with similar symptoms, or any new or recent medication changes. We have placed orders for stool studies. We will await these and continue to follow. 6. Deep vein thrombosis prophylaxis will be provided with sequential compression devices, given that the patient does have a slightly elevated INR of 1.5. He does have elevated liver function tests with alcoholic liver disease. He does have some coagulopathy noted. We will hold anticoagulants. 7. The patient has been placed on the medical floor with telemetry. He will have vital signs every 4 hours. We will do strict intake and output, daily weights. He did have elevated troponin, though he is denying any chest pain. We do not have a previous electrocardiogram for comparison. He does not have any ST elevation or depression noted. The repeat troponin was still elevated, though had decreased. We will continue with a series of cardiac enzymes. We will repeat an electrocardiogram in the morning. This may be related to his acute kidney injury. Further orders and recommendations pending hospital course, diagnostic studies, and physician evaluation. Dictated by BEVERLY Hawkins for Israel Wu MD cc: Israel Wu MD
--- NOTE | 2018-09-11 07:37 | EKG Report ---
Test Performed on : 09/11/2018 07:09:41 AM Test Reason : Elevated Troponins Blood Pressure : / mmHG Vent. Rate : 114 BPM Atrial Rate : 114 BPM P-R Int : 114 ms QRS Dur : 060 ms QT Int : 336 ms P-R-T Axes : 028 016 -28 degrees QTc Int : 463 ms Sinus tachycardia. Low voltage QRS Nonspecific T wave abnormality Abnormal ECG When compared with ECG of 10-SEP-2018 21:21, (Unconfirmed) Nonspecific T wave abnormality, worse in Anterior leads Confirmed by Greg OLVERA, Chaka ([id number]) on 09/11/2018 9:07:50 AM
[2018-09-11 07:39] LABS: ALB/GLOB RATIO 0.5; ALBUMIN 2.2 g/dL (3.5-5.0); CALCIUM 8.3 mg/dL (8.8-10.2); POTASSIUM 5.4 mmol/L (3.5-5.1); TOTAL BILIRUBIN 4.44 mg/dL (0.20-1.00); TOTAL PROTEIN 6.9 g/dL (6.3-8.3)
--- NOTE | 2018-09-11 07:44 | EKG Report ---
Test Performed on : 09/10/2018 9:21:35 PM Test Reason : Hyperkalemia,Elevated Troponin,PAOLO Blood Pressure : / mmHG Vent. Rate : 110 BPM Atrial Rate : 110 BPM P-R Int : 120 ms QRS Dur : 080 ms QT Int : 344 ms P-R-T Axes : 027 011 -12 degrees QTc Int : 465 ms Sinus tachycardia. Low voltage QRS Nonspecific T wave abnormality Abnormal ECG No previous ECGs available Unconfirmed Result
[2018-09-11 08:08] LABS: INR 1.7; PROTIME 21.2 Seconds (11.0-16.0)
--- NOTE | 2018-09-11 08:58 | NEPHROLOGY CONSULTATION ---
DATE: 09/11/2018 REASON FOR CONSULTATION: Assistance with management and acute kidney injury. HISTORY OF PRESENT ILLNESS: Mr. Davis is a 48-year-old white male with cirrhosis secondary to alcohol consumption. He was seen by Dr. Loja within the last week at which time his creatinine was over 4 and so they made an appointment with us in the office. At the time of my exam on yesterday, he was sitting erect but somewhat confused and he deferred to his girlfriend for all answers to all questions. She states that he has been progressively worsening over the last several weeks. Worsening abdominal distention, altered mental status, decreased p.o. intake. No chills or fevers or other symptoms of infection. Again, at the time my exam, he had moderate jaundice, obvious wasting, asterixis, tense ascites and 2+ lower extremity edema. His blood pressure was low so we had him taken to the emergency room for potential admission. Today he is lying in bed. He is spontaneously awake on my arrival. He states he still feels badly but has no specific complaints. No vomiting, no pain, no shortness of breath, etc. PAST MEDICAL HISTORY: As above. HOME MEDICATIONS: Folic acid. ALLERGIES: Penicillin and sulfa. SOCIAL HISTORY: He is a former drinker but none currently. Continues to smoke. Lives with his girlfriend. FAMILY HISTORY: Otherwise noncontributory. REVIEW OF SYSTEMS: Otherwise noncontributory. PHYSICAL EXAMINATION: Vital Signs: Blood pressure 98/72, heart rate 114, respiration 18, afebrile. General: He is a chronically ill-appearing man with obvious weight loss but no acute distress. Skin: Icteric and dry with multiple ecchymoses. HEENT: Conjunctiva are pink. Pupils are equal. Sclerae icteric oropharynx is dry. Neck: Supple. Neck veins are not distended. Trachea is midline. Heart: Regular, mildly tachycardic with an S4. No murmurs. Lungs: Equal excursion, equal breath sounds. No crackles or wheezes. Abdomen: Distended but soft. Bowel sounds are present. No palpable organomegaly. Extremities: Have 2+ edema. No clubbing or cyanosis. IMPRESSION: Acute kidney injury. Baseline creatinine 0.9 as of August 09. He has a urine sodium of less than 10 and only 75 mL of urine output. As such, he is at high risk to have hepatorenal syndrome. We will treat with volume expansion with albumin. He will undergo a paracentesis to eliminate abdominal compartment syndrome as a potential cause of prerenal azotemia. If he does not respond well to these therapies, then we will add midodrine and octreotide. He is receiving empiric IV antibiotics for possible SBP. Lactulose for his encephalopathy. cc: Joce Vazquez MD
[2018-09-11] MEDS: ALBUMIN 25% IV SCH (09:16)
[2018-09-11 11:52] LABS: HEPATITIS PROFILE ACUTE SEE COMMENTS
--- NOTE | 2018-09-11 15:09 | Diag Imaging Result Doc PS360 ---
EXAM: US ABD PARACENTESIS W S/I 09/11/2018 HISTORY: Ascites, Alcoholic Liver Disease TECHNIQUE: Ultrasound-guided paracentesis COMMENT: The risks and benefits were discussed with the patient and his and they agreed to the procedure. Following sterile preparation the skin and administration of the 1% lidocaine to the skin and deeper soft tissues the paracentesis catheter was placed laterally in the right abdomen and subsequently 7 L of slightly turbid yellowish fluid was drained. There are no immediate complications. IMPRESSION: Successful ultrasound-guided paracentesis. Electronically signed by Valente Paredes 09/11/2018 3:07 PM
[2018-09-11] MEDS: FOLIC ACID PO SCH (15:10)
[2018-09-11] MEDS: LACTULOSE PO SCH ×2 (15:11→22:25)
--- NOTE | 2018-09-11 15:12 | Diag Imaging Result Doc PS360 ---
EXAM: US ABDOMEN-COMPLETE 09/11/2018 HISTORY: Alcoholic Liver Disease,Ascites TECHNIQUE: Abdominal ultrasound COMMENT: There is ascites. The liver is hyperechoic and nodular in contour consistent with cirrhosis. There is pulsatile flow in the portal vein. The gallbladder is somewhat thickened with some sediment. There is no sonographic Camacho sign. The kidneys are hyperechoic but there is no evidence of hydronephrosis. The spleen is not enlarged. There is no evidence of biliary dilatation the common bile duct measuring 5 mm. The visualized portions of the aorta and inferior vena cava are within normal limits. The pancreatic head is normal in appearance remainder is not well seen. IMPRESSION: Cirrhosis and ascites. The possibility of medical renal disease cannot be excluded. Electronically signed by Valente Paredes 09/11/2018 3:10 PM
[2018-09-11 16:05] LABS: GLUCOSE BODY FLUID 110 mg/dL; LDH BODY FLUID 44 U/L; TOTAL PROT BODY FLUID 1.1 g/dL
[2018-09-11 17:06] LABS: BODY FLUID SOURCE PERITONEAL FLUID; WBC BF 69 /cumm
[2018-09-11 17:07] LABS: MONOS 80 %; POLYS 20 %
--- NOTE | 2018-09-11 18:20 | GASTROENTEROLOGY CONSULTATION ---
DATE: 09/11/2018 HISTORY OF PRESENT ILLNESS: This is a 48-year-old white male known to our practice. He was just in our office on 09/04/2018. At that time he continued to have ascites and abdominal swelling. He had been on Lasix and Aldactone. Prior to that office visit, we had stopped his Lasix due to elevated BUN and creatinine. His BUN and creatinine continued to increase. At that office visit we stopped his Aldactone. The patient has a mother and a girlfriend who assist with his care. We had referred the patient to Dr. Vazquez for help with abnormal kidney function. He actually had that appointment yesterday, and the patient was sent to the emergency room for admission for further evaluation. Today the patient is more lethargic than he was at the office visit on 09/04. He does arouse and follows commands. He is oriented to person and place. He has continued abdominal swelling. He has increased lower extremity edema. The patient states he had decreased urine output. PAST MEDICAL HISTORY: 1. Alcoholic liver disease, cirrhosis of the liver. 2. Ascites. 3. Elevated BUN and creatinine. PAST SURGICAL HISTORY: History of paracenteses, most recently in July. ALLERGIES: Penicillin, causing nausea and vomiting. Sulfa, causing nausea and vomiting. MEDICATIONS: Folic acid 1 mg daily; lactulose 30 mL twice a day. His spironolactone was stopped at his last office visit and his Lasix was stopped at the previous office visit. SOCIAL HISTORY: He smokes 1 pack of cigarettes a day. He has not had any alcohol since his last hospital admission. He lives with his fiancee. REVIEW OF SYSTEMS: Per history of present illness. PHYSICAL EXAMINATION: Vital signs: Temperature 97.3 degrees, pulse 107, respirations 22, blood pressure 100/58. Generally, the patient was drowsy/lethargic but did arouse, and was oriented to person and place. HEENT: Normocephalic, atraumatic. Scleral icterus noted. Cardiovascular: Regular rate and rhythm. Lung sounds with rhonchi noted. Abdomen is distended, firm. Ascites noted. Mild tenderness with palpation, otherwise positive bowel sounds. Extremities: Bilateral lower extremity edema noted. Neurological: Some lethargy noted, but he does arouse easily and is oriented to person and place. LABORATORY DATA: Hematology: WBC 8.26, hemoglobin 10.0, hematocrit 28.3, MCV 96.9, platelets 147,000. Chemistry: Sodium 124, potassium 5.4, chloride 94, CO2 is 18, BUN 80, creatinine 5.0, glucose 100, calcium 8.3, total bilirubin 4.44, AST 53, ALT 26, alkaline phosphatase 236. ASSESSMENT AND PLAN: 1. Alcoholic cirrhosis of the liver. 2. Acute kidney injury. The patient's diuretics had been stopped. He had been seen by Dr. Vazquez yesterday and sent the emergency room for further evaluation and management. Dr. Vazquez has also seen the patient in the hospital. 3. Ascites. Paracentesis has been ordered and we will follow up on results of fluid analysis. Continue antibiotics that have been started. Further plans will be made as needed. I have discussed this case with Dr. Loja. Thank you for this consultation. Dictated by BEVERLY Bro for Trever Loja MD cc: BEVERLY Ugarte MD
--- NOTE | 2018-09-11 18:20 | PROGRESS NOTE ---
DATE: 09/11/2018 Patient was admitted on 09/11/2018. His doctor is Dr. Jef Banuelos. He is followed by Dr. Vazquez. He came with abdominal swelling and abnormal laboratories. Mr. Davis is 48-year-old male with a history of recent diagnosis of alcoholic liver disease a few months ago. Reported he was in Dr. Vazquez's office, and he did have him come to the emergency room. He had abnormal laboratories. It looked like there was an increase in creatinine from 0.9 to 5.5, GFR calculated at 11, BUN was 79. Patient had decreased urine output, reported he had chronic edema in the lower extremities, and it had gotten worse over the last week or so. Reports he has had increased abdominal swelling over the past week, bilateral side pain, and stretchy type pain in his abdomen. He reports he has had some chills, productive cough with white sputum x2 days, and some diarrhea for a week. Reports the diarrhea was yellowish in color. Denied any hematochezia or melena. Denies any recent traveling or being around anyone who was sick with similar symptoms. In the emergency room, found to have mild leukocytosis. White blood cell count was 10,850, slightly anemic. INR was slightly elevated at 1.58, PT of 20, had acute kidney injury with BUN 79, creatinine 5.5, calculated GFR was 11. Had some slight electrolyte abnormalities; sodium was 124 and potassium 5.4. Liver function tests were elevated as well. Ammonia level was 112. Had elevated troponin of 0.099. He denied any chest pain. He did not seem to have any ST elevation or depression on his EKG, so admitted with: 1. Alcoholic liver disease, increased ascites, pedal edema, and elevated ammonia level. Family said he has been confused and in an altered mental status and I think that was the reason to bring him here. 2. Acute kidney injury. Decreased urine output and concern of possible hepatorenal syndrome. We want to avoid nephrotoxic medication and see if we can improve his renal function in the face of anasarca and increased ascites. 3. Left lower lobe pneumonia. Obtain blood cultures and we will continue present antibiotics and bronchodilators. 4. Diarrhea. No recent travel. I do not a strong indication that this is infectious diarrhea. 5. Continue DVT prophylaxis. The patient likely was admitted for paracentesis and underwent that on 09/11/2018 and they ronaldo off 7 L of slightly turbid yellowish fluid. He is lethargic today. Looking over his orders, they gave him some albumin after paracentesis, folic acid 1 mg p.o. daily, ipratropium bromide inhalation 0.5 mg q.6 h., lactulose 30 mL b.i.d., Xopenex inhaler 1.25 mg inhalation q.6 h., Protonix 40 mg IV q.24 h., ceftriaxone 1 g q.24 h. Continue present regimen. cc: Braden Harman MD
[2018-09-11] MEDS: SODIUM CHLORIDE 0.9% INJ SCH (22:25)
[2018-09-12] MEDS: ATROVENT NEB INH SCH ×4 (03:46→21:32)
[2018-09-12] MEDS: XOPENEX NEB INH SCH ×4 (03:46→21:32)
[2018-09-12 07:11] LABS: HEMATOCRIT 28.1 % (42.0-52.0); HEMOGLOBIN 9.7 g/dL (14.0-18.0); MCH 34.4 PG (27-31); MCHC 34.5 g/dL (33-37); MCV 99.6 FL (81-99); MPV 9.3 FL (7.4-10.4); RBC 2.82 XMIL (4.7-6.1); WBC 8.34 X1000 (4.8-10.8)
[2018-09-12 07:29] LABS: ALBUMIN 2.7 g/dL (3.5-5.0); CALCIUM 8.4 mg/dL (8.8-10.2); PHOSPHORUS 4.6 mg/dL (2.7-4.5); POTASSIUM 4.7 mmol/L (3.5-5.1)
--- NOTE | 2018-09-12 08:15 | NEPHROLOGY PROGRESS NOTE ---
DATE: 09/12/2018 SUBJECTIVE: Patient resting in bed. He is awake today. He is interactive. OBJECTIVE: Vital Signs: Temperature 97.9 degrees, pulse 122, respiratory rate 22, blood pressure 99/56. Intake 400 mL. Output 200 mL. Of note, he had 7 L of fluid drained during his paracentesis yesterday. General: This is a chronically ill-appearing middle- aged gentleman resting in bed. He is awake and alert. He is somewhat verbal but still defers to family for majority of answers. HEENT: Normocephalic, atraumatic. His conjunctivae are pale. He has some icteric sclerae. His oral mucosa is dry. Neck: Supple. There is no JVD. Cardiovascular: Tachycardic with gallop. No murmur noted. Pulmonary: He has equal excursion. There is no rales or wheezes. Abdomen: Distended and soft. Positive bowel sounds. : Voiding. Extremities: 2+ edema. No clubbing or cyanosis. Integumentary: Skin is warm and dry with some ecchymoses and some mild jaundice. LAB DATA: Hemoglobin 9.7. Sodium 128, potassium 4.7, chloride 95, CO2 17, BUN 74, creatinine 5.0. ASSESSMENT AND PLAN: Acute kidney injury in the setting of hepatorenal syndrome. He has been treated with albumin yesterday. Minimal urine output noted. We are repeating his urine electrolytes today as his FENa yesterday was exceptionally low. We will also go ahead and initiate octreotide and midodrine therapy. Continues with IV antibiotics for possible SBP. Continues with lactulose for his encephalopathy. Again the patient at high risk for worsening renal function. Dictated by BEVERLY Tucker for Joce Vazquez MD Face to face encounter, data reviewed, discussed with Xavier Holt on 09/12/18. I agree with the above assessment and plan of care. cc: MD FABIANO Yee
[2018-09-12] MEDS: FOLIC ACID PO SCH (09:59)
[2018-09-12] MEDS: LACTULOSE PO SCH ×2 (09:59→21:51)
[2018-09-12] MEDS: ALBUMIN 25% IV SCH (10:00)
[2018-09-12] MEDS: PROAMATINE PO SCH ×3 (10:49→18:09)
[2018-09-12] MEDS: SANDOSTATIN SUBQ SCH ×3 (11:02→18:09)
[2018-09-12 11:43] LABS: URINE SOURCE CLEAN CATCH
[2018-09-12 11:53] LABS: BILIRUBIN URINE NEGATIVE (NEGATIVE); BLOOD URINE NEGATIVE (NEGATIVE); COLOR YELLOW; GLUCOSE URINE NEGATIVE (NEGATIVE); KETONE URINE NEGATIVE (NEGATIVE); LEUKOCYTES URINE NEGATIVE (NEGATIVE); NITRITE URINE NEGATIVE (NEGATIVE); PROTEIN URINE NEGATIVE (NEGATIVE); SP GRAVITY URINE 1.009; TURBIDITY URINE CLEAR (CLEAR); UR EPITHELIAL CELLS <10 /HPF (<10); URINE BACTERIA NEGATIVE /HPF; URINE RBC <10 /HPF (<10); URINE WBC <10 /HPF (<10); UROBILINOGEN URINE NORMAL (NORMAL)
[2018-09-12 12:12] LABS: UR SODIUM < 10 mmoll; UR UREA NITROGEN RANDOM 796 mg/dL
--- NOTE | 2018-09-12 13:16 | PROGRESS NOTE ---
DATE: 09/12/2018 SUBJECTIVE: Mr. Davis is more awake today, and much more comfortable. He was talking and was oriented x3. Family is at the bedside. Denies any pain. Abdomen feels much better. OBJECTIVE: Temperature 98.4 degrees, pulse 119, respirations 20, and blood pressure 105/65. Pupils are equal and round. Lungs are clear in all lung van. Cardiovascular exam with regular rhythm and rate without murmur or S3. Abdomen is soft. Skin is warm and dry. ASSESSMENT AND PLAN: 1. Acute kidney injury in the setting of hepatorenal syndrome. He had been treated with some albumin yesterday after his paracentesis. Minimal urine output. Repeating urine electrolytes, and check an FENa which was exceptionally low. Also, we will go ahead and Dr. Vazquez is following. We will initiate the hepatorenal regimen octreotide and midodrine therapy. Continue IV antibiotics for possible subacute bacterial peritonitis. 2. Alcoholic cirrhosis of the liver. 3. Ascites. Paracentesis was done. Review his current orders. Folic Acid 1 mg a day, lactulose 30 mL b.i.d., midodrine 10 mg t.i.d., octreotide 200 mcg 3 times a day, Protonix 40 mg IV q.24 hours, and ceftriaxone 1 g q.24 hours. LABORATORY DATA: His labs from this morning, white count 8340, hematocrit is 28, hemoglobin 9.7, and platelet count 117,000. Sodium 128, potassium 4.7, chloride 95, BUN is 74, and creatinine 5.0. IMPRESSION AND PLAN: Continue present measures. Clinically, it looks like he is feeling better. His confusion is better, and I think that is because of the hepatic encephalopathy is improved. We will check another ammonia level tomorrow. cc: Braden Harman MD
--- NOTE | 2018-09-12 18:06 | GASTROENTEROLOGY PROGRESS NOTE ---
DATE: 09/12/2018 SUBJECTIVE: Patient is more awake today. He had paracentesis yesterday with 7 L of fluid removed. Family is at the bedside. OBJECTIVE: Vital Signs: Temperature 98.4 degrees, pulse 119, respirations 20, blood pressure 105/65. General: Patient is more awake today. He is in no acute distress. Abdomen: Still distended but softer. LABORATORY: Hematology: WBC 8.34, hemoglobin 9.7, hematocrit 28.1, MCV 99.6, platelets 117,000. Chemistry: Sodium 128, potassium 4.7, chloride 95, CO2 17, BUN 74, creatinine 5, glucose 123, albumin 2.7. Stool studies so far have been negative. Peritoneal fluid analysis showed no bacteria seen on Gram stain. ASSESSMENT AND PLAN: 1. Cirrhosis of the liver, alcoholic liver disease. 2. Ascites with recent paracentesis. Continue current medications. 3. Acute kidney injury. Following with Nephrology. Continue their recommendation. 4. We will continue to follow, and further plans will be made according to his progress. I have discussed this case with Dr. Loja. Dictated by BEVERLY Bro for Trever Loja MD cc: BEVERLY Ugarte MD
[2018-09-12] MEDS: ROCEPHIN 1 GM in NS 50 ML IV SCH (21:52)
[2018-09-12] MEDS: PROTONIX IV SCH (21:52)
[2018-09-12] MEDS: SODIUM CHLORIDE 0.9% INJ SCH (21:52)
[2018-09-13] MEDS: ATROVENT NEB INH SCH ×4 (03:14→22:36)
[2018-09-13] MEDS: XOPENEX NEB INH SCH ×4 (03:14→22:36)
[2018-09-13] MEDS: PROTONIX IV SCH ×2 (03:43→22:36)
[2018-09-13] MEDS: ROCEPHIN 1 GM in NS 50 ML IV SCH ×2 (03:43→22:36)
[2018-09-13 07:24] LABS: BASO# 0.01 X1000 (0.0-0.2); BASO% 0.1 % (0.0-0.8); EOS# 0.12 X1000 (0.0-0.7); EOS% 1.2 % (0.0-10.0); HEMATOCRIT 27.5 % (42.0-52.0); HEMOGLOBIN 9.7 g/dL (14.0-18.0); IMM GRAN# 0.02 X1000 (0.0-0.04); IMM GRAN% 0.2 % (0.0-0.5); LYMPH# 1.44 X1000 (1.2-3.4); LYMPH% 13.9 % (20.5-51.1); MCH 34.2 PG (27-31); MCHC 35.3 g/dL (33-37); MCV 96.8 FL (81-99); MONO% 10.6 % (1.7-9.3); MPV 9.1 FL (7.4-10.4); NEUT# 7.66 X1000 (1.4-6.5); PLT 131 X1000 (130-400); RBC 2.84 XMIL (4.7-6.1); RDW 14.1 % (11.5-14.5); WBC 10.35 X1000 (4.8-10.8)
[2018-09-13 07:48] LABS: ALB/GLOB RATIO 0.8; CALCIUM 8.4 mg/dL (8.8-10.2); CREATININE 4.4 mg/dL (0.7-1.2); MAGNESIUM 1.9 mg/dL (1.5-2.7); POTASSIUM 4.9 mmol/L (3.5-5.1); TOTAL BILIRUBIN 3.51 mg/dL (0.20-1.00); TOTAL PROTEIN 6.7 g/dL (6.3-8.3)
[2018-09-13] MEDS: PROAMATINE PO SCH ×3 (09:47→18:46)
[2018-09-13] MEDS: FOLIC ACID PO SCH (09:48)
[2018-09-13] MEDS: ALBUMIN 25% IV SCH (09:48)
[2018-09-13] MEDS: LACTULOSE PO SCH ×2 (09:48→22:36)
[2018-09-13] MEDS: SANDOSTATIN SUBQ SCH ×3 (09:51→18:46)
--- NOTE | 2018-09-13 15:53 | NEPHROLOGY PROGRESS NOTE ---
DATE: 09/13/2018 SUBJECTIVE: He states he feels much better. His thinking is much more clear. OBJECTIVE: Vital Signs: Blood pressure 99/64, heart rate 115, respirations 20. Afebrile. General: No acute distress. Chronically ill-appearing. Skin: Warm and dry, with jaundice. Neck: Neck veins are still not visible. Heart: Regular. No gallops. Lungs: Equal. No crackles. Abdomen: Has ascites. Extremities: Have 1+ edema. Neurologic: No asterixis today. IMPRESSION: Acute kidney injury. We are treating him for hepatorenal syndrome using albumin, octreotide, midodrine. Creatinine today is 4.4. Improved from yesterday. Urine output is not document, but appears to improve as well. Continue current care. cc: Joce Vazquez MD
--- NOTE | 2018-09-13 16:55 | PROGRESS NOTE ---
DATE: 09/13/2018 SUBJECTIVE: Mr. Davis is doing better. He is more awake. He is eating. He was able to ambulate some. OBJECTIVE: Vital Signs: Remains afebrile, temperature 98.2 degrees, pulse 115, respirations 20, blood pressure 99/64. HEENT: Pupils are equal and round. Lungs: Clear in all lung van. Cardiovascular: Regular rhythm and rate without murmur or S3. Abdomen: Soft. Skin: Warm and dry. Urine output is 1,500 mL. ASSESSMENT AND PLAN: 1. Acute kidney injury. Treating for hepatorenal syndrome. Using albumin, octreotide, midodrine. Creatinine is 4.4 which is improved. Urine output, I am not sure if that is improved or not, but clinically he looks better. 2. Cirrhosis of the liver, alcoholic liver cirrhosis, ascites, status post paracentesis. Abdomen looks good. Has not reaccumulated much at this point. Continue his present diuretics. 3. Protein calorie malnutrition. Continue to encourage p.o. intake. REVIEW OF ORDERS: He is getting albumin daily 50 g IV daily, folic acid 1 mg daily, ipratropium bromide 0.5 mg inhalation q.6 hours, lactulose 30 mL b.i.d., midodrine which is ProAmatine 10 mg p.o. t.i.d., octreotide 200 mcg subcutaneously t.i.d., Protonix 40 mg IV q.24 hours, ceftriaxone 1 g IV q.24 hours. I do not see any evidence of peritonitis. cc: Braden Harman MD
--- NOTE | 2018-09-13 19:58 | GASTROENTEROLOGY PROGRESS NOTE ---
DATE: 09/13/2018 SUBJECTIVE: Mr. Davis was resting comfortably. He was alert and oriented, responding to questions appropriately. OBJECTIVE: Vital Signs: Temperature 98.2, pulse was 109 per minute, breathing 20, blood pressure 105/60 mmHg. Abdomen: Slightly distended with moderate ascites. Abdomen is otherwise soft. Bowel sounds are audible with 2+ pitting edema noted bilaterally. LABORATORY: Labs reviewed which showed WBC 10.35, hemoglobin 9.7, hematocrit 27.5, MCV 96.8, platelets were 131,000. Sodium 128, potassium 4.9, chloride 96, bicarb was 16, BUN is 66, creatinine has gone down to 4.4. Transaminases, AST was 44, ALT 19, total bilirubin was 3.51 alkaline phosphatase 192, ammonia gone down to 79. IMPRESSION: 1. Alcoholic hepatitis. 2. Cirrhosis of the liver with portal hypertension. 3. Anemia. 4. Mild thrombocytopenia. 5. Hyponatremia. 6. Renal insufficiency. RECOMMENDATION: At this point supportive care. Continue the current care, current supportive care. His peritoneal fluid did not show any evidence of spontaneous bacterial peritonitis. Encouraged to ambulate, continue 2 g sodium salt and will follow. cc: Trever Loja MD
[2018-09-13] MEDS: SODIUM CHLORIDE 0.9% INJ SCH (22:36)
[2018-09-14] MEDS: XOPENEX NEB INH SCH ×4 (03:49→22:21)
[2018-09-14] MEDS: ATROVENT NEB INH SCH ×4 (03:49→22:21)
[2018-09-14 06:44] LABS: HEMATOCRIT 26.6 % (42.0-52.0); HEMOGLOBIN 9.2 g/dL (14.0-18.0); MCH 34.6 PG (27-31); MCHC 34.6 g/dL (33-37); MPV 9.2 FL (7.4-10.4); RBC 2.66 XMIL (4.7-6.1); RDW 14.1 % (11.5-14.5); WBC 10.35 X1000 (4.8-10.8)
[2018-09-14 06:59] LABS: CALCIUM 8.3 mg/dL (8.8-10.2); PHOSPHORUS 4.3 mg/dL (2.7-4.5); POTASSIUM 4.6 mmol/L (3.5-5.1)
--- NOTE | 2018-09-14 10:06 | NEPHROLOGY PROGRESS NOTE ---
DATE: 09/14/2018 SUBJECTIVE: He is feeling better. He has been up and down to use the bathroom, no dizziness or weakness. He is having multiple bowel movements today. OBJECTIVE: Vitals: As recorded. General: No acute distress. Skin: Warm and dry. HEENT: Conjunctivae are pink. Oropharynx is dry. Neck: Neck veins are not distended. Heart: Regular. No gallops. Lungs: Equal. No crackles. Abdomen: Soft, nontender. Bowel sounds present. Extremities: No edema, clubbing or cyanosis. IMPRESSION: Probable hepatorenal syndrome, type 2. Creatinine is improving with octreotide and midodrine and volume expansion with albumin. From my perspective it is okay for him to go home on octreotide and midodrine at the current doses. He can follow up with us in the office within the next 2 weeks. cc: Joce Vazquez MD
[2018-09-14] MEDS: ALBUMIN 25% IV SCH (10:11)
[2018-09-14] MEDS: LACTULOSE PO SCH ×2 (10:23→22:13)
[2018-09-14] MEDS: PROAMATINE PO SCH ×3 (10:23→18:29)
[2018-09-14] MEDS: SANDOSTATIN SUBQ SCH ×3 (10:24→18:30)
[2018-09-14] MEDS: FOLIC ACID PO SCH (10:24)
--- NOTE | 2018-09-14 14:17 | GASTROENTEROLOGY PROGRESS NOTE ---
DATE: 09/14/2018 SUBJECTIVE: Patient is more awake and alert today. Family is at the bedside. No acute distress noted. OBJECTIVE: Vital Signs: Temperature 97.9 degrees, pulse 113, respirations 18, blood pressure 102/59. General: Patient is awake and alert, no acute distress. Abdomen: Distended with ascites. Otherwise soft and nontender. Extremities: Bilateral lower extremity edema noted. LABORATORY DATA: Hematology: WBC 10.35, hemoglobin 9.2, hematocrit 26.6, MCV 100.0. Chemistry: Sodium 128, potassium 4.6, chloride 97, CO2 17, BUN 62, creatinine 4.0, glucose 114, calcium 8.3. ASSESSMENT AND PLAN: 1. Alcoholic hepatitis. 2. Cirrhosis of the liver with portal hypertension. 3. Kidney injury, following with Nephrology. PLAN: Continue current medications. Patient has a scheduled appointment with us next week, recommend he keep that appointment. Follow with Dr. Vazquez as recommended. As far as GI is concerned, he can be discharged home, follow up with us in the office next week. I have discussed this case with Dr. Loja. Dictated by BEVERLY Bro for Trever Loja MD cc: BEVERLY Ugarte MD
--- NOTE | 2018-09-14 16:23 | PROGRESS NOTE ---
DATE: 09/14/2018 SUBJECTIVE: Mr. Davis is feeling much better. In fact, he would like to go home. He has been able to ambulate a little bit. He is alert and oriented x3. No complaints of pain. Breathing comfortably. OBJECTIVE: Vital Signs: Temperature 97.9 degrees, pulse 113, respirations 18, blood pressure 102/59. HEENT: Pupils are equal round. Lungs: Clear in all lung van. Cardiovascular: Regular rhythm and rate without murmur or S3. Abdomen: Soft. Skin: Warm and dry. Urine output from yesterday is 1450 mL. ASSESSMENT AND PLAN: 1. Alcoholic hepatitis. 2. Cirrhosis of the liver. 3. Portal hypertension. 4. Kidney injury, treating for hepatorenal syndrome. From GI standpoint, he can probably go home. I want to make sure that they are comfortable with the medication and that the medicine is available. Creatinine is improving. He is on octreotide, midodrine, and volume expansion. His creatinine is 4.0. When he presented, creatinine was 5.5. I think urine output is improved. I recommend we stay the weekend and make sure that the medication is going to be available and see if we can see a little more improvement. I would like him to be a little stronger. I want him to ambulate. So we are going to set our sites on Monday or Monday. Currently on his medication regimen, he is getting albumin 50 mg IV daily, folic acid 1 mg daily, lactulose 30 mL b.i.d., Xopenex nebulizer q.6 hours, ProAmatine 10 mg t.i.d., octreotide which is Sandostatin 200 mcg subcu t.i.d., and Protonix 40 mg IV q.24 hours. His abdomen has not reaccumulated much. He does have ascites, but he was underwent paracentesis when he first got to the hospital. Looking at his lab work, AST was 55, ALT was 28. We will recheck a Chem 22, CBC, and ammonia level, but his mental status is much improved as well. cc: Braden Harman MD
[2018-09-14] MEDS: NICODERM PATCH TD SCH (18:30)
[2018-09-14] MEDS: SODIUM CHLORIDE 0.9% INJ SCH (22:13)
[2018-09-14] MEDS: ROCEPHIN 1 GM in NS 50 ML IV SCH (22:14)
[2018-09-14] MEDS: PROTONIX IV SCH (22:14)
[2018-09-15] MEDS: ATROVENT NEB INH SCH ×4 (03:50→22:54)
[2018-09-15] MEDS: XOPENEX NEB INH SCH ×4 (03:50→22:54)
[2018-09-15 07:26] LABS: HEMATOCRIT 25.8 % (42.0-52.0); MCH 34.9 PG (27-31); MCHC 34.9 g/dL (33-37); MPV 9.1 FL (7.4-10.4); RBC 2.58 XMIL (4.7-6.1); RDW 14.2 % (11.5-14.5); WBC 8.65 X1000 (4.8-10.8)
[2018-09-15 07:49] LABS: ALBUMIN 3.2 g/dL (3.5-5.0); CALCIUM 8.7 mg/dL (8.8-10.2); CREATININE 3.4 mg/dL (0.7-1.2); POTASSIUM 4.5 mmol/L (3.5-5.1); TOTAL BILIRUBIN 3.93 mg/dL (0.20-1.00); TOTAL PROTEIN 6.5 g/dL (6.3-8.3)
[2018-09-15] MEDS: NICODERM PATCH TD SCH (10:05)
[2018-09-15] MEDS: ALBUMIN 25% IV SCH (10:05)
[2018-09-15] MEDS: LACTULOSE PO SCH ×2 (10:06→21:59)
[2018-09-15] MEDS: SANDOSTATIN SUBQ SCH ×3 (10:07→16:21)
[2018-09-15] MEDS: FOLIC ACID PO SCH (10:07)
[2018-09-15] MEDS: PROAMATINE PO SCH ×3 (10:07→16:21)
--- NOTE | 2018-09-15 11:07 | PROGRESS NOTE ---
DATE: 09/15/2018 SUBJECTIVE: Mr. Davis had a good night, feels much more comfortable, a lot stronger. OBJECTIVE: General: He is awake, alert, and oriented x3, very pleasant. Vitals: Temperature 98.1 degrees, pulse 116, respirations 22, blood pressure 107/69. HEENT: Pupils are equal and round. Lungs: Clear in all lung van. Cardiovascular: Regular rhythm and rate, without murmur or S3. Abdomen: Soft. His abdomen has mild distention, but it is not any bigger, may have gone down a little bit even from two days ago. Skin: Warm and dry. : Urine output 800 mL yesterday. ASSESSMENT: 1. Alcoholic hepatitis. 2. Cirrhosis of the liver. 3. Portal hypertension. 4. Acute kidney injury. PLAN: Treating for hepatorenal syndrome. Continue present medication. Try to get him set up, arranged for home health and go home on Monday. cc: Braden Harman MD
[2018-09-15] MEDS: ROCEPHIN 1 GM in NS 50 ML IV SCH (22:00)
[2018-09-15] MEDS: PROTONIX IV SCH (22:00)
[2018-09-15] MEDS: SODIUM CHLORIDE 0.9% INJ SCH (22:00)
[2018-09-16] MEDS: XOPENEX NEB INH SCH ×3 (04:03→22:20)
[2018-09-16] MEDS: ATROVENT NEB INH SCH ×4 (04:03→22:20)
[2018-09-16 06:37] LABS: HEMATOCRIT 27.2 % (42.0-52.0); HEMOGLOBIN 9.6 g/dL (14.0-18.0); MCH 34.2 PG (27-31); MCHC 35.3 g/dL (33-37); MCV 96.8 FL (81-99); MPV 8.7 FL (7.4-10.4); RBC 2.81 XMIL (4.7-6.1); RDW 14.5 % (11.5-14.5); WBC 7.57 X1000 (4.8-10.8)
[2018-09-16] MEDS: PROTONIX IV SCH ×2 (06:54→23:19)
[2018-09-16] MEDS: ROCEPHIN 1 GM in NS 50 ML IV SCH ×2 (06:55→23:19)
[2018-09-16 07:08] LABS: ALBUMIN 3.5 g/dL (3.5-5.0); CALCIUM 8.9 mg/dL (8.8-10.2); CREATININE 2.9 mg/dL (0.7-1.2); PHOSPHORUS 3.6 mg/dL (2.7-4.5); POTASSIUM 4.6 mmol/L (3.5-5.1)
[2018-09-16] MEDS: ALBUMIN 25% IV SCH (10:47)
[2018-09-16] MEDS: SANDOSTATIN SUBQ SCH ×3 (10:47→17:21)
[2018-09-16] MEDS: NICODERM PATCH TD SCH (10:52)
[2018-09-16] MEDS: PROAMATINE PO SCH ×3 (10:52→17:20)
[2018-09-16] MEDS: FOLIC ACID PO SCH (10:52)
[2018-09-16] MEDS: LACTULOSE PO SCH ×2 (10:52→20:38)
--- NOTE | 2018-09-16 15:10 | PROGRESS NOTE ---
DATE: 09/16/2018 Mr. Davis is feeling much better, ready go home. I think family understands how to give the medication. He seems to be improving on daily basis. Temperature 97.8 degrees, pulse 111, respirations 16, blood pressure 117/76. Pupils are equal and round. Lungs are clear in all lung van. Cardiovascular. Regular rhythm, rate without murmur or S3. Abdomen is soft. Skin is warm and dry. Urine output is 2100 mL. ASSESSMENT AND PLAN: 1. Alcoholic hepatitis. 2. Cirrhosis of the liver, portal hypertension. 3. Kidney injury. Treating for hepatic renal. He is doing well on octreotide and midodrine and volume expansion with albumin so his creatinine is down to 2.9. It is encouraging. I think the family understands how to get the medicine, I need to make sure he can get the medicine. Will discuss with social service tomorrow. Plan is to discharge him tomorrow. EXAM: Today temperature 97.8 degrees, pulse 111, respirations 16, blood pressure 117/76. Pupils are equal and round.Lungs: Clear in all lung van. Cardiovascular: Regular rhythm and rate without murmur or S3. Abdomen: Soft. Skin: Warm and dry. Urine output is 2200 mL so continue midodrine 10 mg t.i.d., octreotide 200 mg subcu t.i.d., midodrine he takes p.o., we have him on ceftriaxone 1 g q.24 hours and hopefully we can get him home tomorrow. He is on lactulose 30 mL b.i.d., folic acid 1 mg a day. cc: Braden Harman MD
[2018-09-16] MEDS: SODIUM CHLORIDE 0.9% INJ SCH (23:19)
[2018-09-17] MEDS: ATROVENT NEB INH SCH ×3 (04:59→15:45)
[2018-09-17] MEDS: XOPENEX NEB INH SCH ×3 (04:59→15:45)
[2018-09-17 07:16] LABS: HEMOGLOBIN 8.9 g/dL (14.0-18.0); MCH 34.6 PG (27-31); MCHC 34.2 g/dL (33-37); MCV 101.2 FL (81-99); MPV 8.8 FL (7.4-10.4); RBC 2.57 XMIL (4.7-6.1); RDW 14.4 % (11.5-14.5); WBC 6.38 X1000 (4.8-10.8)
[2018-09-17 07:42] LABS: ALBUMIN 3.6 g/dL (3.5-5.0); CALCIUM 8.8 mg/dL (8.8-10.2); CREATININE 2.8 mg/dL (0.7-1.2); PHOSPHORUS 2.4 mg/dL (2.7-4.5); POTASSIUM 3.8 mmol/L (3.5-5.1)
[2018-09-17] MEDS: NICODERM PATCH TD SCH (10:54)
[2018-09-17] MEDS: FOLIC ACID PO SCH (10:54)
[2018-09-17] MEDS: PROAMATINE PO SCH ×3 (10:54→18:03)
[2018-09-17] MEDS: LACTULOSE PO SCH (10:54)
--- NOTE | 2018-09-17 11:01 | NEPHROLOGY PROGRESS NOTE ---
DATE: 09/17/2018 SUBJECTIVE: Mr. Davis is resting quietly in bed. Head of the bed is elevated. His family is at his bedside. OBJECTIVE: Vital Signs: His most recent vital signs: Temperature is 98, blood pressure is 98/69, heart rate is 108, respirations are 20. He is currently on room air. His last recorded saturation is 97%. He has had 1340 in. He has voided x2 with urine sitting in the urinal at the bedside. Laboratory Data: Sodium is 133, potassium 3.8, chloride 100, CO2 20, BUN 44, creatinine 2.8, glucose is 120. His anion gap is 13. His calcium is 8.8, phosphorus of 2.4 with an albumin of 3.6. Previous hemoglobin of 9.6. General: This is a 48-year-old white male. He is currently resting quietly in bed. Head of the bed is slightly elevated. He appears chronically ill. No acute distress. Skin: Warm and dry. HEENT: Normocephalic, atraumatic. Conjunctiva is pale pink. He has LUZ MARINA. Mucous membranes are dry. Neck: Supple. Trachea midline. No evidence of JVD. Cardiovascular: Regular rate and rhythm. He is tachycardic. He has an S4. Lungs: Clear to auscultation bilaterally. Equal excursion. He is on room air. Abdomen: Distended, soft, nontender. Positive bowel sounds, hypoactive. Extremities: Have no edema, no clubbing or cyanosis. Genitourinary: The patient is voiding. Request the patient to keep strict I's and O's. ASSESSMENT AND PLAN: 1. Hepatorenal syndrome type 2. The patient continues to remain on octreotide and midodrine. We have requested that he keep strict I's and O's to assist with his urine output. Otherwise, the patient is ready for discharge. We will follow up in our office within 2 to 3 weeks with repeat labs. 2. Electrolytes and acid-base balance. The patient has mild hyponatremia secondary to #1. We will continue to monitor and follow. 3. Anemia. This is low but stable. 4. Liver cirrhosis with ascites. The patient remains on lactulose 30 mL b.i.d. secondary to an elevated ammonia level. The patient had a previous abdominal paracentesis per ultrasound on 09/11. We will defer to the primary care team. I would like to thank you for allowing us to follow with this patient. Dictated by BEVERLY Metcalf for Joce Vazquez MD Face to face encounter, data reviewed, discussed with Connie Ireland on 09/17/18. I agree with the above assessment and plan of care. cc: BEVERLY Metcalf MD [facility]
[2018-09-17] MEDS: SANDOSTATIN SUBQ SCH ×3 (11:08→18:03)
--- NOTE | 2018-09-17 13:00 | GASTROENTEROLOGY PROGRESS NOTE ---
DATE: 09/17/2018 SUBJECTIVE: Patient is awake and alert. He has family at the bedside. He is in no acute distress. I believe there are plans for him to be discharged home. OBJECTIVE: Vital Signs: Temperature 97.7 degrees, pulse 113, respirations 16, blood pressure 106/76. General: Patient is awake, alert, no acute distress. Abdomen: Distended with some ascites but abdomen is soft, positive bowel sounds. Nontender. LABORATORY: Hematology 6.38, hemoglobin 8.9, hematocrit 26.0, MCV 101.2, platelet 96,000. Sodium 133, potassium 3.8, chloride 100, CO2 20, BUN 44, creatinine 2.8, glucose 120, phosphorus 2.4. ASSESSMENT AND PLAN: 1. Alcoholic hepatitis. 2. Cirrhosis of the liver with portal hypertension. 3. Ascites. Patient had 7 L of fluid removed by paracentesis while in the hospital. Continue to follow low-sodium diet. 4. Acute kidney injury. Patient has been seen by nephrology. He has been started on medication, octreotide injections and midodrine. He will follow up with Dr. Vazquez as recommended. 5. Continue current medications. 6. Recommend patient follow up with us in the office in 1 week, have lab work today before his office visit. We will send an order from the office. Further plans to be made according to his progress. 7. I have discussed this case with Dr. Loja. Dictated by BEVERLY Bro for Trever Loja MD cc: BEVERLY Ugarte MD
[2018-09-17 15:52] VITALS: BP 118/79
--- NOTE | 2018-09-17 18:16 | DISCHARGE SUMMARY ---
ADMISSION DATE: 09/10/2018 DISCHARGE DATE: 09/17/2018 PRIMARY CARE PHYSICIAN: Jef Banuelos MD LOG CHIPPER OPERATOR: Joce Vazquez MD BOLT MACHINE OPERATOR: Alfie Campbell MD This is 48-year-old white male with a history of recent diagnosis of alcoholic liver disease a couple months ago. Per report, he was at Dr. Vazquez office but came to the emergency room due to abnormal lab. Had increase in creatinine. Previously it was 0.9. It went up to 5.5. GFR calculated 11, BUN was 79. The patient had decreased urine output. He has had chronic edema in the lower extremities, but it had gotten worse. His abdomen was swelling in the past week and bilateral side pain and felt full and as if his abdomen was stretching. He reports that he had some chills, a productive cough and white sputum production x2 days. Reported diarrhea for a week. Diarrhea was yellowish in color. Denied any hematochezia or melena. Denied any recent travel. Has not been around anybody who was sick. Reported some decreased urine output. Denied any pain or burning with urination. In the emergency room, he had leukocytosis with white blood cell count 10,850, slightly anemic. His INR was 1.58, pro-time was 20. Appeared to have acute kidney injury, BUN was 79, creatinine 5.5, calculated GFR was 11. Slight electrolyte abnormalities. Sodium was low at 124, potassium 5.4. Liver function tests slightly elevated. He transaminases slightly elevated. Ammonia level was 112. Troponin level was 0.099. He denied any chest pain. EKG showed sinus tachycardia, but did not appear to show any ST elevation or depression. Admitted and underwent pleurocentesis. Abdominal ultrasound done on 09/11/2018 confirms cirrhosis and ascites and consider medical renal disease with smaller paracentesis done on 09/11/2018 drained off 7 L. He felt much more comfortable. He was very lethargic and confused, and this improved steadily. His strength improved. Renal function improved. Dr. Vazquez was following him, and he gave him some volume expansion and gave him some albumin for several days in a row, 50 g of albumin, and treated him for possible hepatorenal syndrome. Gastroenterology was consulted, Dr. Loja, for alcoholic cirrhosis of liver, acute kidney injury, and felt to keep him on proton pump inhibitors. Dr. Vazquez had put him on octreotide and midodrine, and his renal function did improve I think mainly from volume expansion. Getting ready go home on 09/17/2018. The octreotide is very expensive and so is the midodrine and so we are going to try and see if he can get some help with it, but he may not be able to continue these medications. [place] he was ready go home on 09/17/2018. He is on folic acid 1 mg a day, he was getting Atrovent nebulizers which we stopped, lactulose 30 mL b.i.d., midodrine which is ProAmatine 10 mg t.i.d., nicotine patch 21 mg a day, Sandostatin which is octreotide 200 mcg subcutaneously t.i.d. which very expensive and we filled out some forms but I am not sure if he will be able to continue this as it is calculated that it would cost him $90 a day, Protonix 40 mg p.o. daily. FOLLOW-UP: He will follow up with primary care and follow up with Dr. Vazquez. cc: Braden Harman MD MTDD
== END 2018-09-17 18:26 | disposition home health service (06) | DRG 432 ==
LOC: ED 16:35 → SUATTDRO 22:27 → 4N 22:27
PROVIDERS: ATTEND Emergency Medicine
CPT/HCPCS: 49083; 71010; 71045; 76700; 80053; 80069; 80074; 81001; 82140; 82150; 82270; 82550; 82570; 82945; 83605; 83615; 83690; 83735; 83935; 84100; 84156; 84157; 84300; 84484; 84540; 85025; 85027; 85610; 85730; 87040; 87045; 87046; 87070; 87205; 87324; 88112; 89051; 89055; 93005; 93010; 94640; 94760; 94761; 94799; 96365; 99285; A9270; C9113; J0696; J1956; J2354; P9047; S0164

== ENCOUNTER 2018-10-06 21:48 | Inpatient (IN) ==
[2018-10-06] MEDS ORDERED: LACTULOSE PO ONE (22:05)
[2018-10-06 22:37] LABS: BASO# 0.03 X1000 (0.0-0.2); BASO% 0.4 % (0.0-0.8); EOS# 0.08 X1000 (0.0-0.7); HEMATOCRIT 24.6 % (42.0-52.0); HEMOGLOBIN 8.8 g/dL (14.0-18.0); IMM GRAN# 0.04 X1000 (0.0-0.04); IMM GRAN% 0.5 % (0.0-0.5); LYMPH# 1.82 X1000 (1.2-3.4); LYMPH% 23.9 % (20.5-51.1); MCH 34.1 PG (27-31); MCHC 35.8 g/dL (33-37); MCV 95.3 FL (81-99); MONO# 1.06 X1000 (0.11-0.59); MONO% 13.9 % (1.7-9.3); MPV 8.9 FL (7.4-10.4); NEUT# 4.59 X1000 (1.4-6.5); NEUT% 60.3 % (42.2-75.2); PLT 156 X1000 (130-400); RBC 2.58 XMIL (4.7-6.1); RDW 16.9 % (11.5-14.5); WBC 7.62 X1000 (4.8-10.8)
[2018-10-06 23:06] LABS: ALB/GLOB RATIO 0.7; ALBUMIN 3.1 g/dL (3.5-5.0); CALCIUM 8.7 mg/dL (8.8-10.2); CREATININE 3.5 mg/dL (0.7-1.2); TOTAL BILIRUBIN 3.47 mg/dL (0.20-1.00); TOTAL PROTEIN 7.5 g/dL (6.3-8.3)
[2018-10-06] MEDS ORDERED: ATIVAN IV ONE (23:13)
--- NOTE | 2018-10-06 23:40 | PROVIDER DOCUMENTATION ---
This chart was entered by Sadie Rojas Scribe, acting as scribe for Jhony Koehler MD. HPI-General Adult - General Chief Complaint: Altered Mental Status Stated Complaint: ams Time Seen by Provider: 10/06/18 21:51 Source: family Allergies/Adverse Reactions: Patient Allergies Allergy/AdvReac Type Severity Reaction Status Date / Time Penicillins AdvReac NAUSEA/VOMI Verified 09/28/18 09:15 TING Sulfa (Sulfonamide AdvReac NAUSEA/VOMI Verified 09/28/18 09:15 Antibiotics) TING Home Medications: Home Medication List Medication Instructions Recorded Confirmed Last Taken Type Folic Acid 1 mg PO DAILY #90 tab 08/07/18 09/28/18 09/27/18 Rx Lactulose 30 ml PO BID 09/11/18 09/28/18 09/27/18 History Spironolactone 100 mg PO PRN PRN 09/11/18 09/28/18 09/27/18 History Midodrine [Proamatine] 10 mg PO TID 30 Days #90 tab 09/17/18 09/28/18 09/27/18 Rx Octreotide Acetate [Sandostatin] 200 microgm SUBQ TID 30 Days #90 09/17/18 0 09/28/18 09/27/18 Rx ampul - History of Present Illness -Gen Adult Nature of Presenting Problems: 48 y/o male presents to ED with AMS onset yesterday. Pt has hx cirrhosis due to alcoholism. Location of Pain/Injury: reports: none Pain Radiation: reports: no radiation Quality of Pain: reports: none Severity: reports: moderate Onset/Duration: reports: 24 hours ago Timing: reports: still present Context/Activities at Onset: reports: none Modifying Factors: improves with: nothing Associated Symptoms: reports: other (AMS) Similar Symptoms Previously?: No Recently seen or treated by another doctor?: No Review of Systems - Adult - REVIEW OF SYSTEMS - ADULT ROS:: ROS per family Constitutional: reports: see HPI, other (AMS) Eyes: reports: no symptoms reported Ears, Nose, Mouth & Throat: reports: no symptoms reported Cardiovascular: reports: no symptoms reported Respiratory: reports: no symptoms reported Gastrointestinal: reports: no symptoms reported Genitourinary: reports: no symptoms reported Musculoskeletal: reports: no symptoms reported Integumentary: reports: no symptoms reported Neurological: reports: other (AMS). denies: seizure Psychiatric: reports: no symptoms reported Endocrine: reports: no symptoms reported Hematologic/Lymphatic: reports: no symptoms reported Allergic/Immunologic: reports: no symptoms reported All Other Systems: Reviewed and Negative Past History - Adult - PAST MEDICAL HISTORY-ADULT Review of Records: reports: Old Records Reviewed, Nursing Assessment Review, Medications Reviewed Major Childhood Illnesses: reports: denies history Cardiovascular: reports: denies history Gastrointestinal: reports: liver disease (cirrhosis) Genitourinary: reports: kidney disease - PRIOR SURGERIES/PROCEDURES Surgical/Procedure History: reports: none - IMMUNIZATION STATUS Childhood Immunizations: See Nurse Assessment Flu Vaccine: See Nurse Assessment - FAMILY HISTORY Family History: reviewed, not pertinent - SOCIAL HISTORY Smoking: greater than 1 pack/day Provider spent 3-5 mins advising pt. on dangers of tobacco.: Discussed manners to quit use, and f/u contacts for add'l counseling. Substance Use: none presently/history of abuse, alcohol Alcohol Use Frequency: sober (former use) Living Situation: family Physical Exam-General - PHYSICAL EXAM-ADULT Initial Vital Signs Reviewed: Yes - CONSTITUTIONAL General Appearance: no apparent distress, other (altered; does not answer questions or follow commands) - EYES Eyes: PERRL/EOMI, pink conjunctivae - HEAD, EARS, NOSE, MOUTH & THROAT HENMT: normocephalic/atraumatic, moist mucous membranes, normal ENT inspection - NECK Neck: full range of motion - RESPIRATORY Respiratory: lungs clear, normal breath sounds - CARDIOVASCULAR Cardiovascular: normal peripheral pulses, regular rate, rhythm - GASTROINTESTINAL (ABDOMEN) Abdominal Exam: normal bowel sounds, soft - MUSCULOSKELETAL Back Exam: normal inspection Extremity: normal range of motion - SKIN Integumentary: normal color, warm/dry - NEUROLOGIC Neurologic: other (altered; does not answer questions or follow commands) - PSYCHIATRIC Psych/Mental Status: other (altered; does not answer questions or follow commands) Progress - PLAN OF CARE/RESULTS Progress/Plan/Lab Results: Vital Signs - 8 hr 10/06/18 22:02 10/06/18 22:04 10/06/18 22:10 Temperature 97.6 F Pulse Rate 102 H 101 H Respiratory Rate 24 23 21 Blood Pressure 80/50 O2 Sat by Pulse Oximetry 100 100 10/06/18 22:20 10/06/18 22:30 10/06/18 22:31 Temperature Pulse Rate 102 H 101 H 103 H Respiratory Rate 27 H 27 H 31 H Blood Pressure 107/58 O2 Sat by Pulse Oximetry 77 L 100 97 Laboratory Results - last 24 hr 10/06/18 10/06/18 10/06/18 22:12 22:12 22:12 WBC 7.62 RBC 2.58 L Hgb 8.8 L Hct 24.6 L MCV 95.3 MCH 34.1 H MCHC 35.8 RDW Std Deviation 16.9 H Plt Count 156 MPV 8.9 Immature Gran % (Auto) 0.5 Neut % (Auto) 60.3 Lymph % (Auto) 23.9 Sharp % (Auto) 13.9 H Eos % (Auto) 1.0 Baso % (Auto) 0.4 Immature Gran # (Auto) 0.04 Neut # (Auto) 4.59 Lymph # (Auto) 1.82 Sharp # (Auto) 1.06 H Eos # (Auto) 0.08 Baso # (Auto) 0.03 Ammonia 130 H Plasma Lactate 2.5 H Orders Category Date Time Status cxr [CHEST-1 VIEW] [RAD] Stat Exams 10/06/18 22:03 Taken AMMONIA [CHEM] Stat Lab 10/06/18 22:12 Completed BLOOD CULTURE [BLDCUL] Stat Lab 10/06/18 22:12 Results CBC WITH ELECTRONIC DIFF [HEME] Stat Lab 10/06/18 22:12 Completed COMPREHENSIVE METABOLIC PANEL [CHEM] Stat Lab 10/06/18 22:12 Received LACTATE, PLASMA [CHEM] Stat Lab 10/06/18 22:12 Completed LIPASE [CHEM] Stat Lab 10/06/18 22:12 Received PRO B-NATRIURETIC PEPTIDE Stat Lab 10/06/18 22:12 Received TROPONIN T Stat Lab 10/06/18 22:12 Received URINALYSIS [URINALYSIS] Stat Lab 10/06/18 22:03 Uncollected Lactulose Med 10/06/18 22:05 Discontinued 30 ml PO NOW ONE EKG [EKG] Stat Ther 10/06/18 22:03 Ordered Result Diagrams: 10/06/18 22:12 10/06/18 22:12 - EKG 1 Time of EKG reading by physician:: 22:28 EKG Read and Signed by:: Jhony Koehler EKG Interpretation (*Must complete 3 of following elements*): Abnormal Rate: 104 Rhythm: Accelerated junctional [place]: normal QRS: other (low voltage QRS) MN Interval: normal ST Wave: non-specific ST changes Departure - Departure Date of Disposition Decision: 10/06/18 Time of Disposition Decision: 23:39 DIAGNOSIS: Hepatic encephalopathy Disposition: ADMITTED INPATIENT 09 Certified Medical Emergency: Emergent Condition: Stable Referrals and Follow-Ups: Jef Banuelos MD [Primary Care Provider] - Discharge Education: Steps to Quit Smoking, [id number] - Critical Care Note This patient required my direct & personal management of CC.: No Attestation - Physician/ TARIQ Attestation Patient care was provided by Advanced Practice Provider:: No The physician spent face to face time with patient:: Yes Advanced Practice Provider documentation review:: Supervising physician onsite and consulted in the evaluation and care of this patient. The physician did have a face to face encounter with the patient. This chart was documented by the indicated scribe, (Sadie Rojas, Scribcristina) and accurately reflects the services I performed and decisions made by me, Jhony Koehler MD, as attested by the provider's signature.
[2018-10-07 00:03] LABS: URINE SOURCE CATH
[2018-10-07 00:07] LABS: BILIRUBIN URINE NEGATIVE (NEGATIVE); BLOOD URINE NEGATIVE (NEGATIVE); COLOR YELLOW; GLUCOSE URINE NEGATIVE (NEGATIVE); KETONE URINE NEGATIVE (NEGATIVE); LEUKOCYTES URINE NEGATIVE (NEGATIVE); NITRITE URINE NEGATIVE (NEGATIVE); PH URINE 5.5; PROTEIN URINE TRACE mg/dL (NEGATIVE); SP GRAVITY URINE 1.011; TURBIDITY URINE CLEAR (CLEAR); UROBILINOGEN URINE NORMAL (NORMAL)
[2018-10-07 00:09] LABS: UR EPITHELIAL CELLS <10 /HPF (<10); URINE BACTERIA NEGATIVE /HPF; URINE RBC <10 /HPF (<10); URINE WBC <10 /HPF (<10)
[2018-10-07] MEDS ORDERED: HALDOL IM PRN (01:13)
[2018-10-07] MEDS ORDERED: NICODERM PATCH TD ONE (01:26)
[2018-10-07] MEDS ORDERED: SODIUM CHLORIDE 0.9% INJ SCH (01:45)
[2018-10-07 01:58] LABS: INR 1.68; PROTIME 21.1 Seconds (11.0-16.0)
[2018-10-07 02:04] LABS: IRON SATURATION 36 %; TIBC 110 ug/dL; TOTAL IRON 40 ug/dL (53-167); UNBOUND IRON 70 ug/dL (112-346)
[2018-10-07] MEDS: HALDOL IM PRN ×2 (02:18→22:17)
[2018-10-07] MEDS: PROTONIX IV SCH (02:18)
[2018-10-07] MEDS: LACTULOSE PO SCH ×4 (02:18→18:38)
[2018-10-07] MEDS: FOLIC ACID 1 MG in NS 50 ML IV SCH (02:23)
[2018-10-07] MEDS: THIAMINE 100 MG in NS 50 ML IV SCH (02:36)
--- NOTE | 2018-10-07 03:15 | HISTORY AND PHYSICAL ---
CHIEF COMPLAINT: Altered mental status. HISTORY OF PRESENT ILLNESS: Mr. Wei Davis is a 48-year-old male who has a history of alcoholic liver disease and presents now to the hospital because of a change in his mental status. I could not get any information from the patient as his mental status was altered. However, the patient's mother was present in the room, who indicates that change in his mental status was sudden. On presentation to the ER, he was found to have a raised ammonia level of about 130. He did receive a dose of lactulose. The patient will now be admitted to the floor for further management. PAST MEDICAL HISTORY: Alcoholic liver cirrhosis, alcoholism, as well as tobacco use history. SOCIAL HISTORY: The patient smokes cigarettes, and mother indicates that he has quit drinking alcohol. PAST SURGICAL HISTORY: Unremarkable. ALLERGIES: He is allergic to penicillin. FAMILY HISTORY: Positive for diabetes and hypertension. MEDICATIONS INCLUDE: 1. Folic acid 1 mg p.o. daily. 2. Lactulose 30 mL twice a day. 3. Midodrine 10 mg p.o. 3 times a day. 4. Spironolactone 100 mg p.o. p.r.n. 5. Octreotide acetate 200 mcg subcu 3 times a day. REVIEW OF SYSTEMS: Review of systems could not be obtained from the patient. PHYSICAL EXAMINATION: VITAL SIGNS ARE FOLLOWS: Temperature 98.6, pulse 102, respiratory rate 23, blood pressure is 80/50, oxygen saturation is 100%. HEENT: Atraumatic, normocephalic. He is anicteric. Pupils are dilated, poorly reactive to light. The patient is not cooperative for oral exam. NECK: No lymphadenopathy or thyromegaly. CARDIOVASCULAR: S1, S2. Regular rate and rhythm. RESPIRATORY: Has evidence of good air entry bilaterally. ABDOMEN: Soft and is full. No masses felt. EXTREMITIES: Has 1 to 2+ edema in both lower extremities. CENTRAL NERVOUS SYSTEM: Patient's mental status is altered. He is restless. No obvious focal deficits noted. LABS: WBC 7.62, hematocrit 4.6, with a platelet count of 106,000. Sodium is 130, potassium 5.0, chloride 98, bicarb 16, BUN is 61, creatinine is 3.5. Glucose 113, AST is 50, ALT 20, alkaline phosphatase 202, ammonia level 130. Troponin is 0.167. ASSESSMENT AND PLAN: This is a 48-year-old male presented to the hospital because of a change in mental status, noted to a raised ammonia level. 1. Hepatic encephalopathy. We will maintain patient on lactulose, as well as rifaximin. We will closely follow up on his mental status. I will also get a CT scan of the brain without contrast. 2. Alcoholic liver cirrhosis. Will check coagulation profile and correct that if needed. Maintain patient on diuretics, and also check an abdominal ultrasound to evaluate for ascites. 3. Renal failure, probably acute. Judicious use of diuretics. Consult with Nephrology. 4. Anemia. Check iron studies, including B12 as well as folate level, along with stool for occult blood. 5. Tobacco use history. Recommend nicotine patch. 6. Alcoholism. The patient Mom indicated he has actually quit drinking alcohol. We will maintain on thiamine, and also folic acid, and check his magnesium as well as phosphorus levels, and correct those if needed. 7. Deep vein thrombosis prophylaxis. Sequential compression devices. 8. Gastrointestinal prophylaxis. Proton pump inhibitor. cc: Dustin Wen MD
--- NOTE | 2018-10-07 07:22 | Diag Imaging Result Doc PS360 ---
EXAM: CHEST-1 VIEW 10/06/2018 HISTORY: ams TECHNIQUE: AP portable upright at 2224 COMMENT: There is a left pleural effusion. The inspiration is suboptimal. There appears to be mild interstitial pulmonary edema. Compared to 09/10/2018 this has not changed appreciably. IMPRESSION: Pulmonary edema and left pleural effusion. Electronically signed by Valente Paredes 10/07/2018 7:20 AM
--- NOTE | 2018-10-07 08:33 | Diag Imaging Result Doc PS360 ---
EXAM: Right upper quadrant ultrasound 10/07/2018 HISTORY: liver cirrhosis TECHNIQUE: Right upper quadrant ultrasound (left side not scanned due to patient condition.) COMMENT: There is ascites. The pancreas is slightly inhomogeneous in echotexture, however there are no discrete apparent masses. The tail of the pancreas is not well demonstrated. The visualized portions of the aorta and inferior vena cava are within normal limits. The liver is hyperechoic as is the right kidney. There is no evidence of hydronephrosis. There is antegrade flow in the portal vein which is slightly pulsatile. There is sludge throughout the gallbladder and the gallbladder wall is thickened in appearance. The common bile duct is not distended measuring less than 5 mm. The spleen and left kidney were not evaluated due to the patient's clinical condition and inability to scan on the left. IMPRESSION: Marked ascites. Hepatic steatosis and/or cirrhosis. Medical renal disease. Sluggish and pulsatile antegrade flow in the portal vein. Sludge and gallbladder wall thickening consistent with chronic cholecystitis. The presence of a sonographic Camacho sign could not be evaluated due to the patient's condition. Electronically signed by Valente Paredes 10/07/2018 8:31 AM
[2018-10-07] MEDS ORDERED: ROCEPHIN 1 GM in NS 50 ML IV SCH (09:15)
[2018-10-07] MEDS: ROCEPHIN 1 GM in NS 50 ML IV SCH ×2 (09:20→21:49)
--- NOTE | 2018-10-07 09:40 | Diag Imaging Result Doc PS360 ---
EXAM: CT HEAD W/O CONTRAST 10/07/2018 HISTORY: encephalopathy TECHNIQUE: This exam was performed using automated exposure control, adjustment of mA or kV according to patient size, and/or use of iterative reconstruction technique. COMMENT: There is no evidence of mass effect, bleed, or abnormal extra-axial fluid collection. The calvarium is intact. The visualized paranasal sinuses are clear. There is incomplete fusion of the posterior arch of C1. IMPRESSION: No evidence of acute intracranial disease. Electronically signed by Valente Paredes 10/07/2018 9:37 AM
[2018-10-07] MEDS: ALBUMIN 25% IV SCH (10:12)
[2018-10-07] MEDS: XIFAXAN PO SCH ×2 (10:14→21:49)
[2018-10-07] MEDS: PROAMATINE PO SCH ×3 (10:14→17:09)
[2018-10-07] MEDS: SANDOSTATIN SUBQ SCH ×3 (10:20→17:16)
[2018-10-07 10:22] LABS: UR CREAT RANDOM 128.6 mg/dL (14-26)
[2018-10-07] MEDS: NON-FORMULARY MED PR SCH ×3 (10:27→17:24)
[2018-10-07 10:32] LABS: UR SODIUM < 10 mmoll
--- NOTE | 2018-10-07 12:45 | PROGRESS NOTE ---
DATE: 10/07/2018 INTERVAL HISTORY: Mr. Davis had a pending order of transfer to ICU. He was admitted for altered mental status and suspected acute encephalopathy. No other acute overnight events. SUBJECTIVE: He is altered and fidgety. He appears in mild distress. The patient's mother is at bedside. The patient is not able to give meaningful history. He keeps on moaning and coughing. Mother states the patient usually lives with his girlfriend who had just left because she has her own medical issues. Apparently, patient came in because of altered mental status of about 6 hours' duration which was sudden. According to mother, patient has not had any alcoholic drink in the last 30 to 40 days. VITALS: Currently afebrile with temperature of 97.6 degrees, pulse 107, respiratory rate 16, blood pressure 103/63, maintaining MAP more than 65 most occasions. PHYSICAL EXAMINATION: Patient is in mild distress. Pupils are bilaterally equal, reacting to light. Mild conjunctival pallor. Oral cavity is moist. Examination is difficult as the patient keeps on moving. However, S1-S2 appear normal. No murmur, rub, or gallop. Lungs: Air entry bilaterally equal. No wheeze, rhonchi. He does appear to have mild crackles bilaterally. Abdomen: Distended. Dullness to percussion on flanks and has shifting dullness. Appears to have ascites. Bilateral ankle edema. He has a urine catheter in place. LABS: Labs are significant for normocytic anemia due to anemia of chronic disease, elevated INR in the setting of liver disorder, hyponatremia, slight elevation of anion gap and low level of bicarbonate, acute kidney injury. He also has elevated alkaline phosphatase, elevated bilirubin, flat trend of troponins. MICROBIOLOGY: Blood culture is in lab. Urinalysis showing urine random sodium less than 10. IMAGING: Chest x-ray suggestive of pulmonary edema and poor inspiratory effort with left pleural effusion. Abdomen ultrasound showing marked ascites, hepatic steatosis or cirrhosis, medical renal disease, chronic cholecystitis. Head CT suggestive of no evidence of acute intracranial pathology. ASSESSMENT AND PLAN: 1. Acute hepatic encephalopathy. I will continue patient on lactulose and rifaximin. CT scan of head is unremarkable. 2. Suspected acute spontaneous bacterial peritonitis. I will follow up with blood culture results. Start him on intravenous ceftriaxone and we will get ultrasound guided paracentesis once he is able to comply with paracentesis procedure. Right now, he is too agitated. 3. Acute kidney injury. Possible contributors could include use of diuretics including spironolactone and Lasix versus acute tubular necrosis in the setting of spontaneous bacterial peritonitis versus hepatorenal syndrome. I will continue his home octreotide and midodrine, and I will start him on intravenous albumin. I will consult nephrology as well. 4. History of alcohol abuse and alcoholic liver cirrhosis. I am holding his diuretics considering his current status. I will consult road machine operator tomorrow. Continue thiamine. 5. Anemia of chronic disease. Continue to monitor CBC. 6. Tobacco abuse. I will start him on nicotine patch. 7. Deep venous thrombosis prophylaxis, sequential compression devices. 8. Gastrointestinal prophylaxis. I will start him on pantoprazole. 9. Disposition: The patient will be transferred to the intensive care unit for acute hepatic encephalopathy. If he ends up in intensive care unit, I will consider switching midodrine to intravenous norepinephrine. Plan of care discussed with the patient's mother at bedside. All of her questions have been answered. More than 30 minutes of critical care time were spent in taking care of this patient. cc: Francisco Toribio MD MTDD
[2018-10-07] MEDS ORDERED: LEVOPHED 8 MG in D5 1/2 NS 250 ML IV SCH (13:45)
[2018-10-07] MEDS ORDERED: NS 500 ML IV SCH (13:45)
--- NOTE | 2018-10-07 15:26 | NEPHROLOGY CONSULTATION ---
DATE: 10/07/2018 REASON FOR ADMISSION: Altered mental status. REASON FOR CONSULTATION: Hepatorenal syndrome. CONSULTING PHYSICIAN: Dr. Toribio. HISTORY OF PRESENT ILLNESS: This is a 48-year-old gentleman known to our service from a recent admission back in mid August with hepatorenal syndrome, type 2. The patient had been treated with albumin, midodrine, spironolactone, and octreotide during the hospitalization. We attempted to send him home on spironolactone and octreotide but family was unable to obtain it. He did continue with midodrine and lactulose for his blood pressure and for his renal issue. The patient was seen in our office last week and his labs prior to that visit were 2.2. Those labs had been drawn within just a few days of that office visit and the patient aside from having some lower extremity edema was doing fairly well and we were planning on seeing him in followup in three months because of his improvement. The family states that over the following couple of days he was in his usual state of health, he even attended a family reunion and had no issues at all and then he very suddenly had an onset of altered mental status. He was brought into the emergency room where he was found to have an ammonia level of 130. His creatinine had risen to 2.8. We have been asked to see him for his hepatorenal syndrome. When I see the patient, he is almost completely obtunded. I really cannot understand anything he says. He has been given lactulose enema but has not produced a stool yet. His edema is about 3+, bilateral lower extremities. He does have albumin infusing when I see him. He is noted to have an extremely low FENa with a urine sodium of less than 10. PAST MEDICAL HISTORY: EtOH cirrhosis, alcoholism, history of tobacco use, recent development of hepatorenal syndrome. PAST SURGICAL HISTORY: Unremarkable. ALLERGIES: Penicillin. HOME MEDICATIONS: Folic acid, lactulose, midodrine, spironolactone, and octreotide. Note: He has not been able to obtain or take the spironolactone or octreotide. FAMILY HISTORY: Diabetes and hypertension. SOCIAL HISTORY: Continues to smoke. He has quit drinking alcohol since his last hospital visit. No illicit drug use. REVIEW OF SYSTEMS: Altered mental status, otherwise unobtainable. PHYSICAL EXAMINATION: Vital Signs: Temperature 97.6, pulse 107, respiratory rate 16, blood pressure 103/63. Intake not measured, output incontinent. General: This is an acutely ill appearing elderly gentleman waiting on an Intensive Care Unit bed, currently resting on a stretcher and obtunded. HEENT: Normocephalic, atraumatic. Oral mucosa is extremely moist. Pupils appear reactive. Neck: Supple. There is no JVD. Cardiovascular: Regular rate and rhythm. Tachycardic rate. Pulmonary: He has decreased breath sounds but clear. Abdomen: Distended. Soft. Genitourinary: Burns catheter. He has dark orange yellow urine. Extremities: He has 2+ edema, bilateral lower extremities. His upper extremities he has pulled up to his chest and will not move. Integumentary: Skin is pale, jaundiced, warm and dry. Neurologic: Grossly obtunded. LAB DATA: WBC is 7.6, hemoglobin 8.8. Sodium 130, potassium 5.0, CO2 16, BUN 61, creatinine 3.5, albumin 3.1, calcium 8.7. He had iron saturation of 36. His ammonia level was 130. His urine had trace of protein. ASSESSMENT AND PLAN: 1. Hepatorenal syndrome, type II, diagnosed in August of this year. I will restart his octreotide. He already has his albumin restarted today. Continue lactulose and midodrine. If needed, the midodrine can be exchanged for dopamine since he is going to the Intensive Care Unit. Likely will restart spironolactone tomorrow. It is noted that he has exceptionally low FENa score. We would like to get some fluid to mobilize first. 2. Acute kidney injury secondary to the above. Renal function is slightly worse than his office visit. Will continue with current plan. Check labs again in the morning. 3. Hepatic encephalopathy secondary to his liver disease and extremely elevated ammonia. He is followed by primary. His faculty administrator is Dr. Loja. 4. Ascites. The patient receives routine paracentesis through Dr. Loja's office. Dictated by BEVERLY Tucker for Joce Vazquez MD cc: Joce Vazquez MD
[2018-10-07] MEDS: ZYVOX 600 MG/D5W 600 MG/300 ML IVPB IV SCH (17:16)
--- NOTE | 2018-10-07 21:55 | OPERATIVE NOTE ---
PROCEDURE DATE: 10/07/2018 PREOP DIAGNOSIS: Is hepatic encephalopathy with acute kidney injury and hypotension. POSTOP: Is hepatic encephalopathy with acute kidney injury and hypotension. PROCEDURE PERFORMED: Right femoral triple-lumen catheter placement. ESTIMATED BLOOD LOSS: 10 mL. SPECIMENS: None. ANESTHESIA: Local. FINDINGS: Normal vascular anatomy, was quite agitated during procedure. OPERATIVE NOTE: Risks, benefits, alternatives were discussed with the family. They consented given the patient's altered mental status. We restrained his hands both with restraints and physically and prepped his right groin with chlorhexidine solution draped usual fashion, after time-out we injected local anesthetic, palpated femoral artery pulse and accessed femoral vein medial to this. Dark nonpulsatile venous blood was noted on return wire threaded easily, skin incision was made and tract was dilated. Pre flushed triple-lumen catheter 7-Greenlandic was advanced and the wire was removed. All ports withdrew blood and flushed without resistance, it was secured with silk suture. Dressing was applied. Sterile caps were also applied. He tolerated reasonably well. cc: Haley Bustamante MD
[2018-10-08] MEDS: PROTONIX IV SCH (00:51)
[2018-10-08] MEDS: LACTULOSE PO SCH ×4 (02:02→20:04)
[2018-10-08] MEDS: FOLIC ACID 1 MG in NS 50 ML IV SCH (02:02)
[2018-10-08] MEDS: THIAMINE 100 MG in NS 50 ML IV SCH (02:02)
[2018-10-08] MEDS: ZYVOX 600 MG/D5W 600 MG/300 ML IVPB IV SCH ×2 (04:33→17:45)
--- NOTE | 2018-10-08 05:51 | Diag Imaging Result Doc PS360 ---
EXAM: CHEST-PORTABLE HISTORY: ng placement TECHNIQUE: Portable chest single view COMPARISON: 10/06/2018 FINDINGS: Poor inspiratory effort. No cardiomegaly. There are infiltrates in the lower left lung. A nasogastric tube overlies the esophagus and stomach and appears to be good position. This was not present on the prior exam. IMPRESSION: Placement of a nasogastric tube which appears to be in good position. Electronically signed by Laureano Robles 10/08/2018 5:49 AM
[2018-10-08 06:21] LABS: BASO# 0.07 X1000 (0.0-0.2); BASO% 1.2 % (0.0-0.8); EOS# 0.11 X1000 (0.0-0.7); EOS% 1.9 % (0.0-10.0); HEMATOCRIT 23.2 % (42.0-52.0); HEMOGLOBIN 7.9 g/dL (14.0-18.0); LYMPH# 1.46 X1000 (1.2-3.4); MCH 33.3 PG (27-31); MCHC 34.1 g/dL (33-37); MCV 97.9 FL (81-99); MONO# 0.64 X1000 (0.11-0.59); MPV 9.3 FL (7.4-10.4); NEUT# 3.55 X1000 (1.4-6.5); NEUT% 60.9 % (42.2-75.2); PLT 132 X1000 (130-400); RBC 2.37 XMIL (4.7-6.1); RDW 17.1 % (11.5-14.5); WBC 5.83 X1000 (4.8-10.8)
[2018-10-08 06:39] LABS: ALB/GLOB RATIO 0.9; ALBUMIN 3.1 g/dL (3.5-5.0); CALCIUM 8.6 mg/dL (8.8-10.2); CREATININE 3.3 mg/dL (0.7-1.2); POTASSIUM 4.9 mmol/L (3.5-5.1); TOTAL BILIRUBIN 5.8 mg/dL (0.20-1.00); TOTAL PROTEIN 6.6 g/dL (6.3-8.3)
[2018-10-08 06:50] LABS: MAGNESIUM 1.9 mg/dL (1.5-2.7); PHOSPHORUS 4.6 mg/dL (2.7-4.5)
--- NOTE | 2018-10-08 07:57 | EKG Report ---
Test Performed on : 10/06/2018 10:28:45 PM Test Reason : ams Blood Pressure : / mmHG Vent. Rate : 104 BPM Atrial Rate : 105 BPM P-R Int : 000 ms QRS Dur : 062 ms QT Int : 346 ms P-R-T Axes : 000 019 -09 degrees QTc Int : 454 ms Accelerated Junctional rhythm. Low voltage QRS Nonspecific ST and T wave abnormality Abnormal ECG When compared with ECG of 11-SEP-2018 07:09, Junctional rhythm. has replaced Sinus rhythm. Unconfirmed Result
[2018-10-08] MEDS ORDERED: LACTULOSE MISC PRN (09:02)
--- NOTE | 2018-10-08 09:55 | PROGRESS NOTE ---
DATE: 10/08/2018 INTERVAL HISTORY: Mr. Davis got right-sided groin central venous catheter overnight. NG tube was placed. He was given his medication. He had a large bowel movement in the morning time as well. His vitals were otherwise unremarkable. SUBJECTIVE: He is much more awake and alert today. Denies any new complaints. He states his belly looks distended, but that is normal for him. Denies undue abdominal pain, nausea, or vomiting. He does not remember the course of events. He states that he was brought to the hospital because his partner told him that he was freaking out. Currently, denies any headache or visual disturbance. VITALS: Temperature of 97.3 degrees, pulse 96, respiratory rate 16, blood pressure 98/72, and saturating 88 percent on room air. PHYSICAL EXAMINATION: General: Does not appear in any acute distress. HEENT: Oral cavity is moist. He does have some scleral icterus. Lungs: Air entry bilaterally equal. No wheeze or rhonchi. He has decreased breath sound on bilateral inframammary region. Heart: S1, S2 normal. No murmur, rub, or gallop. Abdomen: Distended. Dullness to percussion bilateral flanks. Tympanic to percussion in the center of the abdomen in supine position. Hypoactive bowel sounds. He has a urine catheter, right-sided groin catheter. Extremities: Mild bilateral lower extremity edema. : Input and output suggests his Burns catheter had about 1 L of urine. LABORATORY: Labs are suggestive of normocytic anemia and normal platelet count. His bicarbonate has improved. BUN and creatinine continues to remain as they were yesterday. Continues to have abnormalities in liver function test. MICROBIOLOGY: One of the blood cultures growing gram-positive cocci. IMAGING: Chest x-ray performed today suggests placement of nasogastric tube in good position. ASSESSMENT AND PLAN: 1. Acute hepatic encephalopathy. Potential source could be spontaneous bacterial peritonitis. Follow up final blood culture results. The patient to undergo ultrasound- guided paracentesis and ascitic fluid studies today. Continue lactulose and rifaximin with a goal of 2 to 3 soft formed bowel movements a day. Continue intravenous ceftriaxone and intravenous linezolid. Follow up with the ascitic fluid and blood culture results. 2. Acute kidney injury, possible contributors could be diuretic induced intravascular volume depletion versus acute tubular necrosis in the setting of SBP versus worsening of his hepatorenal syndrome. Continue octreotide, intravenous albumin, and intravenous norepinephrine. My plan is to stop norepinephrine and start him on midodrine in the next 24 to 48 hours depending on his clinical course and renal function. 3. History of alcohol abuse, alcoholic liver cirrhosis, and ascites. I will continue home thiamine, folic acid and pantoprazole. I am holding home diuretics for now. 4. Other issues: Anemia of chronic disease. I will continue to monitor; Continue nicotine patch for tobacco abuse; continue sequential compression devices for deep venous thrombosis prophylaxis; and pantoprazole for GI prophylaxis. 5. Disposition. Patient remains inside intensive care unit for need for intravenous norepinephrine. TIME SPENT: More than 30 minutes of critical care time was spent in taking care of this patient. I have discussed his plan of care with him. Yesterday, I extensively discussed plan of care with the patient's mother at bedside. cc: Francisco Toribio MD MTDD
[2018-10-08] MEDS: FOLIC ACID NG SCH (10:00)
[2018-10-08] MEDS: ROCEPHIN 1 GM in NS 50 ML IV SCH ×2 (10:00→21:25)
[2018-10-08] MEDS: SANDOSTATIN SUBQ SCH ×3 (10:00→17:45)
[2018-10-08] MEDS: XIFAXAN PO SCH ×2 (10:00→21:25)
[2018-10-08] MEDS: VITAMIN B-1 NG SCH (10:00)
[2018-10-08] MEDS: NICODERM PATCH TD SCH (10:00)
[2018-10-08] MEDS: ALBUMIN 25% IV SCH (10:17)
[2018-10-08] MEDS ORDERED: NS 500 ML IV ONE (11:41)
[2018-10-08] MEDS: NS 1,000 ML IV SCH ×2 (12:18→20:54)
--- NOTE | 2018-10-08 14:27 | Diag Imaging Result Doc PS360 ---
EXAM: US ABD PARACENTESIS W S/I HISTORY: R/o SBP TECHNIQUE: Ultrasound-guided paracentesis COMPARISON: None. FINDINGS: Prior to the procedure I discussed the risk and benefits with the patient. Primary risks include bleeding, infection, bowel injury, and liver injury. Questions were answered. Consent was given. The permit was signed. Ultrasound was used to localize the largest fluid collection in the right abdomen. This area was cleaned and draped in the normal fashion. Lidocaine was used as a local anesthetic. Needle and catheter were advanced into the fluid collection on the first attempt without difficulty. The needle was withdrawn. The catheter was hooked to suction. Approximately 6.7 L of yellowish fluid were withdrawn without difficulty. The catheter was then withdrawn. No immediate postprocedural complications. IMPRESSION: Successful ultrasound-guided paracentesis. Electronically signed by Laureano Robles 10/08/2018 2:24 PM
[2018-10-08 16:35] LABS: BODY FLUID SOURCE PERITONEAL FLUID; WBC BF 74 /cumm
[2018-10-08 16:37] LABS: ALBUMIN BODY FLUID 0.9 g/dL
[2018-10-08 16:38] LABS: GLUCOSE BODY FLUID 137 mg/dL; LDH BODY FLUID 73 U/L
[2018-10-08 17:09] LABS: MONOS 67 %; POLYS 33 %
--- NOTE | 2018-10-08 17:26 | NEPHROLOGY PROGRESS NOTE ---
DATE: 10/08/2018 SUBJECTIVE: He is awake, but very somnolent and he is not really able to answer my questions. OBJECTIVE: Vital Signs: Blood pressure 111/81, heart rate 100, respiration 18, afebrile. Intake 3.4 L. Output 2.9 L. General: Chronically ill, severe muscle wasting. Jaundice. No acute distress. Skin: Warm and dry. HEENT: Conjunctivae are pink. Neck: Neck veins are flat. Heart: Regular with S4. Lungs: Equal. No crackles. Abdomen: Four plus ascites. Bowel sounds are present. Extremities: No edema, clubbing or cyanosis. IMPRESSION AND PLAN: Acute kidney injury overlying chronic kidney disease. Presumed hepatorenal syndrome type 2. His lowest creatinine was 2.2 following his most recent medical illness with acute kidney injury. Creatinine today is 3.3. Urine output is low. Continue albumin, octreotide comma, Midodrine. I will discontinue Levophed. I will give a 500 mL bolus and begin normal saline at 100 an hour anticipating his paracentesis. cc: Joce Vazquez MD
--- NOTE | 2018-10-08 18:10 | GASTROENTEROLOGY PROGRESS NOTE ---
DATE: 10/08/2018 SUBJECTIVE: Patient was resting in no acute distress at the time of my visit. His mother and girlfriend were at the bedside. Information is obtained from the family. He had sudden onset of altered mental status, lethargy during the day on Monday. Patient's girlfriend states he laid down to take a nap, at the time he was alert, oriented, when he woke up he was very confused. She states that he had been doing fairly well since his recent discharge. He had actually felt better and because of that, he did not take his routine medications for 2 to 3 days per girlfriend's report. She states he says that the medications make him sick. The patient does arouse and is able to answer some of my questions. He feels bloated and distended. He does have orders for a paracentesis for today. He is currently waiting on that procedure to be done. OBJECTIVE: Vital Signs: Temperature 92.7 degrees, pulse 90, respirations 16, blood pressure 89/61. General: Patient was resting but he did arouse. Some slurred speech but he was able to give me some information. He currently has an NG tube that is clamped and being used for his medications. LABORATORY: Hematology. WBC 5.83, hemoglobin 7.9, hematocrit 23.2, MCV is 97.9, platelets 132,000. Chemistry. Sodium 135, potassium 4.9, chloride 103, CO2 19, BUN 60, creatinine 3.3, glucose 124, total bilirubin 5.80, AST 47, ALT 16, alkaline phosphatase 150. ASSESSMENT AND PLAN: 1. Acute hepatic encephalopathy. The patient went 2 to 3 days without his medications, those medications have been restarted by nasogastric tube. 2. Acute kidney injury. Patient had been following with Dr. Vazquez and his BUN and creatinine had actually improved, when he was seen at his office visit patient's renal functions have worsened since then. 3. Ascites. Patient has paracentesis scheduled for today. We will follow up on those lab results. 4. Anemia. Continue to monitor. 5. Continue current medications. He has paracentesis ordered for today. I have strongly encouraged patient to take his medications every day and avoid missing any of his medications. Once he is awake and alert enough to take in oral medications his NG tube can be removed. We will continue to follow. We have sent a referral for the [facility] Liver Department, but unfortunately they are booked out until February. Again, will continue to follow and further plans will be made according to his progress. I have discussed this case with Dr. Loja. Dictated by BEVERLY rBo for Trever Loja MD cc: BEVERLY Ugarte MD
[2018-10-09] MEDS: ZYVOX 600 MG/D5W 600 MG/300 ML IVPB IV SCH ×2 (04:38→16:12)
[2018-10-09] MEDS: LACTULOSE PO SCH ×4 (04:38→19:56)
[2018-10-09 06:04] LABS: BASO# 0.04 X1000 (0.0-0.2); BASO% 1.1 % (0.0-0.8); EOS# 0.07 X1000 (0.0-0.7); HEMATOCRIT 24.1 % (42.0-52.0); HEMOGLOBIN 8.2 g/dL (14.0-18.0); LYMPH# 0.82 X1000 (1.2-3.4); LYMPH% 22.9 % (20.5-51.1); MCH 33.3 PG (27-31); MONO% 11.2 % (1.7-9.3); MPV 8.7 FL (7.4-10.4); NEUT# 2.25 X1000 (1.4-6.5); NEUT% 62.8 % (42.2-75.2); PLT 103 X1000 (130-400); RBC 2.46 XMIL (4.7-6.1); RDW 16.9 % (11.5-14.5); WBC 3.58 X1000 (4.8-10.8)
[2018-10-09 06:31] LABS: ALBUMIN 2.9 g/dL (3.5-5.0); CALCIUM 7.7 mg/dL (8.8-10.2); CREATININE 2.9 mg/dL (0.7-1.2); POTASSIUM 4.2 mmol/L (3.5-5.1); TOTAL BILIRUBIN 3.05 mg/dL (0.20-1.00); TOTAL PROTEIN 5.7 g/dL (6.3-8.3)
[2018-10-09] MEDS: PRILOSEC NG SCH (06:43)
[2018-10-09] MEDS: PROAMATINE PO SCH ×3 (08:25→16:12)
[2018-10-09] MEDS: VITAMIN B-1 NG SCH (08:25)
[2018-10-09] MEDS: FOLIC ACID NG SCH (08:25)
[2018-10-09] MEDS: XIFAXAN PO SCH ×2 (08:25→20:41)
[2018-10-09] MEDS: SANDOSTATIN SUBQ SCH ×3 (08:26→16:12)
[2018-10-09] MEDS: NICODERM PATCH TD SCH (08:28)
[2018-10-09] MEDS: NS 1,000 ML IV SCH ×2 (08:28→15:43)
[2018-10-09] MEDS: ROCEPHIN 1 GM in NS 50 ML IV SCH (08:29)
--- NOTE | 2018-10-09 11:06 | PROGRESS NOTE ---
DATE: 10/09/2018 INTERVAL HISTORY: Patient underwent abdominal ultrasound-guided paracentesis and 6.5 L of fluid were removed. After that, he started feeling better. His norepinephrine was discontinued. However, the midodrine was not started, which I started in the morning time. His kidney function is improving. His abdominal fluid analysis had a WBC count less than 250. It did have elevated serum ascitic albumin gradient more than 1.2, suggestive of portal hypertension and low-protein suggestive of uncomplicated ascitic fluid because of cirrhosis. One of the two blood cultures is growing gram-positive cocci. Final result is pending. SUBJECTIVE: He is feeling fine. He is eating well. He does not appear in acute distress. We discussed about clinical exam findings, plan, and I answered all of his questions. He denies new complaints. VITAL SIGNS: Temperature of 97.5 degrees, pulse of 93, respiratory rate 15, blood pressure 87/65, saturating 100% on room air. PHYSICAL EXAMINATION: General: Does not appear in any acute distress. Oral cavity is moist. He has an NG tube. Mild scleral icterus. Air entry bilaterally equal. No wheeze or rhonchi. Mild bilateral inframammary crackles. S1, S2 normal. No murmur, rub, or gallop. Abdomen is distended. Dullness to percussion in bilateral flanks and tympanic in the center of the abdomen in supine position. Hypoactive bowel sounds. He also has a urine catheter and right-sided groin central line catheter. He does not have any lower extremity edema. Input and output suggests he has had multiple bowel movements yesterday. His urine output has been on the lower side. LABS: Suggestive of no leukocytosis, normocytic anemia, mild thrombocytopenia, improving BUN and creatinine, improving liver function tests as well. Ascitic fluid suggestive of WBCs of 74 with 67% mononuclear cells. Total protein was 2. MICROBIOLOGY: Final blood culture results are pending. IMAGING: No new imaging data. ASSESSMENT AND PLAN: 1. Acute hepatic encephalopathy, likely in the setting of medication noncompliance and hyperammonemia. The patient does mention that he did not take medicines for 2 or 3 days. Ascitic fluid does not suggest spontaneous bacterial peritonitis. I will stop the antibiotic, ceftriaxone, and we will stop linezolid after final blood culture results. Continue lactulose and rifaximin with a goal of 2 to 3 soft formed bowel movements a day. 2. Acute kidney injury due to intravascular volume depletion because of diuretic use versus worsening of his hepatorenal syndrome type 2. Continue octreotide. He is status post intravenous albumin and start him on midodrine. His norepinephrine was stopped yesterday. 3. History of alcohol abuse, alcoholic liver cirrhosis, and ascites. Continue thiamine, folic acid, and pantoprazole. Hold diuretics for now until his kidney function recovers. It looks like his last baseline was close to 2.3 as per documentation. 4. Other issues. Anemia of chronic disease and thrombocytopenia are stable. I will continue to monitor it; continue nicotine patch for tobacco abuse; sequential compression devices for deep venous thrombosis prophylaxis; pantoprazole for stress ulcer prophylaxis. 5. Disposition. Patient appears to be hemodynamically stable. He is maintaining MAP of more than 65. My plan is to transfer him to a stepdown unit. I will continue him on an oral diet. I will continue Burns catheter for 24 hours. Once his kidney function is coming to baseline, my plan is to discontinue it. 6. Disposition and plan of care discussed with the patient. All of his questions have been answered. cc: Francisco Toribio MD
--- NOTE | 2018-10-09 14:19 | NEPHROLOGY PROGRESS NOTE ---
DATE: 10/09/2018 SUBJECTIVE: He states he is feeling a little better. He had a 6 L paracentesis yesterday. He is certainly more alert today. OBJECTIVE: Vital Signs: Blood pressure 87/65, heart rate 93, respirations 15. Intake and Output: Intake 4.4 L. Output 700 mL plus the greater than 6 L from his paracentesis. Generally, frail, thin. Marked muscle wasting. No acute distress. Skin is warm and dry. Neck veins are not distended and are not visible. Heart is regular. Lungs are equal, no crackles. Abdomen: Soft, nontender. Bowel sounds present. Less distended. Extremities: No edema, clubbing, or cyanosis. IMPRESSION: Hepatorenal syndrome, type B. Creatinine today 2.9. I have him on IV fluids, and we will continue those through the day. Continue albumin as well. No changes. Okay to transfer to the floor. cc: Joce Vazquez MD
[2018-10-09] MEDS ORDERED: ROCEPHIN 1 GM in NS 50 ML IV ONE (18:00)
--- NOTE | 2018-10-09 21:53 | GASTROENTEROLOGY PROGRESS NOTE ---
DATE: 10/09/2018 SUBJECTIVE: Patient is more awake. He is alert. His NG tube has been removed. He had a paracentesis yesterday with 6 L of fluid removed. OBJECTIVE: Vital Signs: Temperature 97.1 degrees, pulse 93, blood pressure 103/71. General: Patient is awake and alert in no acute distress. He has a family member at the bedside. Abdomen: Still distended with some ascites but softer. He had 6 L of fluid removed from paracentesis yesterday. LABORATORY: Hematology: WBC 3.58, hemoglobin 8.2, hematocrit 24.1, MCV 98, platelets 103,000. Chemistry: Sodium 138, potassium 4.2, chloride 106, CO2 is 18, BUN 49, creatinine 2.9, glucose 158. Total bilirubin 3.05, AST 32, ALT 12, alkaline phosphatase 115, albumin 2.9. ASSESSMENT AND PLAN: 1. Acute hepatic encephalopathy. Continue lactulose and Xifaxan. Patient had paracentesis yesterday with 6 L of fluid removed. Ascitic fluid workup did not suggest bacterial peritonitis. 2. Acute kidney injury. Following with Dr. Vazquez. Continue their recommendation. 3. Cirrhosis of the liver related to alcoholic liver disease. Continue to avoid all alcohol. We will continue to follow. Further plans to be made according to his progress. We have made a referral for [facility], but unfortunately that appointment is booked out until February. 4. We will continue to follow, and further plans to be made according to his progress. I have discussed this case with Dr. Loja. Dictated by BEVERLY Bro for Trever Loja MD cc: BEVERLY Ugarte MD
[2018-10-10] MEDS: NS 1,000 ML IV SCH (02:25)
[2018-10-10] MEDS: LACTULOSE PO SCH ×2 (02:25→09:13)
[2018-10-10] MEDS: ZYVOX 600 MG/D5W 600 MG/300 ML IVPB IV SCH (04:25)
[2018-10-10 05:51] LABS: ALBUMIN 2.7 g/dL (3.5-5.0); CALCIUM 7.4 mg/dL (8.8-10.2); CREATININE 2.6 mg/dL (0.7-1.2); POTASSIUM 4.5 mmol/L (3.5-5.1); TOTAL BILIRUBIN 1.95 mg/dL (0.20-1.00); TOTAL PROTEIN 5.4 g/dL (6.3-8.3)
[2018-10-10] MEDS: PRILOSEC NG SCH (06:11)
[2018-10-10] MEDS ORDERED: ROCEPHIN 2 GM in NS 50 ML IV SCH (09:00)
[2018-10-10] MEDS ORDERED: ALBUMIN 25% IV SCH (09:00)
[2018-10-10] MEDS: PROAMATINE PO SCH ×2 (09:12→17:20)
[2018-10-10] MEDS: NICODERM PATCH TD SCH (09:13)
[2018-10-10] MEDS: FOLIC ACID NG SCH (09:13)
[2018-10-10] MEDS: VITAMIN B-1 NG SCH (09:14)
[2018-10-10] MEDS: XIFAXAN PO SCH (09:14)
[2018-10-10] MEDS: SANDOSTATIN SUBQ SCH ×3 (09:56→16:15)
--- NOTE | 2018-10-10 11:47 | NEPHROLOGY PROGRESS NOTE ---
DATE: 10/10/2018 SUBJECTIVE: He is sitting up on the commode. OBJECTIVE: No acute distress. Skin is warm and dry. Conjunctivae are pink. Neck veins are not distended. No edema. IMPRESSION: Hepatorenal syndrome type B. BUN and creatinine continue to improve. I have ordered additional albumin. From my perspective, really there is nothing further to add. I note that he has positive blood cultures now from admission and this may delay his discharge. We will continue his octreotide, midodrine, and albumin while he is in the hospital. cc: Joce Vazquez MD
[2018-10-10] MEDS ORDERED: LACTULOSE PO SCH (15:00)
[2018-10-10 15:03] VITALS: BP 108/60
--- NOTE | 2018-10-11 09:50 | DISCHARGE SUMMARY ---
ADMISSION DATE: 10/07/2018 DISCHARGE DATE: 10/10/2018 DISCHARGE DISPOSITION: Home. DISCHARGE CONDITION: Stable. Patient is hemodynamically stable, alert, and oriented x3. Denies any nausea or vomiting. He is eating. He has had frequent bowel movements. The patient's fiancee is at bedside. DISCHARGE DIAGNOSES: 1. Acute hepatic encephalopathy in the setting of medication noncompliance and hyperammonemia. 2. Acute kidney injury due to intravenous volume depletion because of diuretic use on top of baseline hepatorenal syndrome type 2. 3. One of 2 positive blood cultures because of Streptococcus parasanguinous, likely a contaminant. 4. Transaminitis and elevated bilirubin in the setting of hepatic encephalopathy. 5. Elevated troponin's in the setting of chronic kidney disease. OTHER DIAGNOSES: 1. History of alcohol abuse leading to hepatic cirrhosis, ascites and type 2 hepatorenal syndrome with chronic kidney disease stage 3. 2. History of medication noncompliance. 3. History of not being able to take octreotide because of insurance issues. CONSULTATION DURING HOSPITALIZATION: 1. Gastroenterology, Dr. Loja. 2. Assessment Nurse Practitioner, Dr. Vazquez. DISCHARGE MEDICATIONS: 1. Folic Acid 1 mg daily. 2. Lactulose 30 mL p.o. b.i.d., 33 day supply with 1 refill has been prescribed. 3. Nicotine patch 40 mg daily, 14 patches have been prescribed. 4. Midodrine 10 mg t.i.d., previously 5 refills have been prescribed. VITALS: At the time of discharge temperature 97.3 degrees, pulse 109, respiratory rate 16, blood pressure 102/72, saturating 98% on room air. PHYSICAL EXAMINATION: General: Patient does not appear in any acute distress. Oral cavity is moist. No pallor. No cyanosis. He had mild conjunctival icterus, which is improved since presentation. No clubbing or cyanosis. Lungs: Air entry bilaterally equal. No wheeze, rhonchi or crackles. Heart: S1, S2 normal. Tachycardic. No murmur, rub, or gallop. Abdomen: Distended. Dull to percussion bilateral flank, nontender. Active bowel sounds. Extremities: No lower extremity edema. Neurologic: He is alert and oriented x3. He wants to go home. LABORATORY DATA: At the time of discharge, WBC 3.5, hemoglobin 8.2, and platelet of 103,000. Sodium of 130, potassium of 4.5, bicarbonate of 17, BUN of 42, creatinine of 2.6, and GFR of 27. His total bilirubin is 1.9 and ALT of 14. Significant microbiology during hospital admission - 1 of the 2 blood cultures were growing Streptococcus para sanguinous, which is Streptococcus viridans. However, he did not have any dental issues. He was having frequent bowel movements without any bowel obstruction so it was thought to be a contaminant. Ascitic fluid culture did not have any growth. Stool occult blood test was positive. Ascitic fluid studies had suggested total WBC count of 74 with 67% mononuclear cells. Total protein of 2 and albumin of 0.9. SIGNIFICANT IMAGING DURING HOSPITAL ADMISSION: Chest x-ray on admission had pulmonary edema and left pleural effusion. Abdomen ultrasound had marked ascites, hepatic steatosis or cirrhosis, medical renal disease, pulsatile antegrade flow in the portal vein, gallbladder sludge, and some thickening suggestive of chronic cholecystitis. Head CT on admission did not have any evidence of acute intracranial disease. Chest x-ray on 10/07 had adequate placement of nasogastric tube. He underwent ultrasound-guided paracentesis on 10/07/2018 with 6.7 L of yellowish fluid removal. He did receive intravenous albumin after that. HOSPITAL COURSE SUMMARY: Mr. Davis is 48 year old man with past medical history of alcohol abuse leading to alcoholic cirrhosis, portal hypertension, ascites and hepatorenal syndrome type 2, who was brought in by his fiancee because of acute confusion which started 6 hours prior to presentation. According to history given by patient's fiancee, the patient had not been taking his routine medications including lactulose regularly, and he did not take any of these medications the last 2 to 3 days thinking he was getting better. Apparently, he was also prescribed octreotide at home for his hepatorenal syndrome, which he could not afford because of insurance issues. In the emergency room, he was found to have hyperammonemia, tachycardia and acute encephalopathy so hospitalist service was admitted for further management. Considering his acute encephalopathy, tachycardia and hypotension with systolic blood pressure of 80s and diastolic blood pressure of 40s, though his MAP was more than 65 he was admitted to the ICU for further management. It was thought that his presentation was likely in the setting of hepatic encephalopathy in the setting of spontaneous bacterial peritonitis initially, though later on his fluid analysis did not suggest that, and his hepatic encephalopathy was attributed to his medication noncompliance. Inside the hospital, initially nasogastric tube was introduced and he was receiving lactulose, rifaximin, and he started having multiple bowel movements following which within 24 hours says his mental status had improved to normal. He was continued on lactulose at the time of discharge. He was also noted to have acute kidney injury on chronic kidney disease stage 3 to stage 4 on admission, and he was started on intravenous fluids as well as intravenous albumin. At the time of discharge, his kidney function was improving, and his Lasix and spironolactone were held. He was advised to get repeat kidney function within 5 days and follow up with kidney doctor to decide about if he would need Lasix in the future. He presented with significant ascites, though he did not have any abdominal tenderness. He underwent a paracentesis with more than 6 L of ascites fluid removal. The ascitic fluid studies had suggested total WBC count in ascitic fluid less than 70, and the culture did not show any growth. Initially, he was started on intravenous antibiotics for suspicion of spontaneous bacterial peritonitis when he presented with encephalopathy. Later on, antibiotics were stopped since his ascitic fluid studies and culture were negative and his encephalopathy was attributed to medication noncompliance with lactulose. The 1 of the 2 blood cultures was positive for Streptococcus viridans parasanguinous. He did not have any dental disease or clinical features of sepsis. His WBC count was also normal. It was decided not to be treated. At the time of discharge, detailed discharge instructions were provided to patient and his fiancee at bedside. During hospitalization, his mother was also kept informed about his clinical course. TIME SPENT: More than 30 minute was spent in discharging this patient. cc: MD FABIANO Holden
--- NOTE | 2018-10-11 15:12 | GASTROENTEROLOGY PROGRESS NOTE ---
DATE: 10/10/2018 SUBJECTIVE: The patient is more alert today. He is in no acute distress. He is oriented to person and place. No family is at the bedside. OBJECTIVE: Vital signs: Temperature 97.3 degrees, pulse 109, respirations 16, blood pressure 102/72. [*]Alert, in no acute distress. Tolerating his diet, following 2 g sodium and renal diet. Abdomen with ascites noted, but currently softer after paracentesis. He had its over 6 L of fluid removed on 10/08/2018. LABORATORY DATA: Hematology: WBC 3.58, hemoglobin 8.2, hematocrit 28.1. Chemistry: Sodium [*] potassium 4.5, chloride 104, CO2 is 17, BUN 42, creatinine 2.6, glucose 146, total bilirubin 1.95, AST 35, ALT 14, alkaline phosphatase 121, albumin 2.7. ASSESSMENT AND PLAN: 1. Cirrhosis of the liver. 2. Hepatorenal syndrome, following with Nephrology. I believe they have given him an additional albumin today. 3. Liver function tests, bilirubin have improved. [*]positive blood cultures showing Streptococcus parasanguis. Continue recommendation per hospitalist. Continue current medications. Continue lactulose, Xifaxan. Have strongly encouraged the patient to take all of his medications every day and to avoid missing his medications. We will continue to follow during his hospital course, follow up with him after discharge. I have discussed this case with DR. Loja. Dictated by BEVERLY Bro for Trever Loja MD cc: BEVERLY Ugarte MD
== END 2018-10-10 19:00 | disposition home or self-care (01) | DRG 441 ==
LOC: SUPCPDRO → ED 21:48 → EDIPHOLD 10-07 03:56 → SUATTDRO 10-07 03:56 → ICU 10-07 11:31 → 3S 10-10 06:28
PROVIDERS: ATTEND Internal Medicine
CPT/HCPCS: 49083; 51702; 70450; 71010; 71045; 76700; 80053; 81001; 82042; 82140; 82270; 82570; 82607; 82728; 82746; 82945; 82948; 83540; 83550; 83605; 83615; 83690; 83735; 83880; 83935; 84100; 84157; 84300; 84484; 85025; 85610; 87040; 87070; 87077; 87186; 89051; 93005; 96365; 96367; 96372; 96375; 97110; 97162; 97530; 99285; A9270; C9113; J0696; J1630; J2020; J2060; J2354; J3411; J7030; J7040; P9047; S0164; XXXXX